=== PATIENT | male | born 1955 | race African-American/Black ===

== ENCOUNTER 2016-11-11 16:01 | Inpatient (IN) | payer MEDICAID ==
[~2016-11-11] VITALS: Ht 188 cm; Wt 103.6 kg
[~2016-11-11 16:01] MED LIST: ASPI81CH37 CHEW; CYCL5TAB PO; GABA400C5 PO; LISI10TA3 PO; METF500T4 PO; NOVORP2 SQ; TRAM50TA PO; VIAG50TA PO
[2016-11-11 16:05] VITALS: BP 117/77; PULSE 96; RESP 20; TEMP 97.7; O2SAT 92
[2016-11-11 16:36] VITALS: O2SAT 98
--- NOTE | 2016-11-11 16:47 | PD ---
HPI Chief Complaint: Neuro Symptoms/ Deficits Time Seen by Provider: 16:39 Travel History International Travel<30 days: No Contact w/Intl Traveler<30days: No Traveled to known affect area: No History of Present Illness HPI 61-year-old male that presents to the ED for evaluation of neurological symptoms. Per patient he had a CVA a couple years ago. Per patient and affect that his left side. Per patient he always has some chronic numbness and weakness to his left side but this morning he woke up with more numbness and more symptoms from it. Per patient he usually has some left facial paralysis but he states that before he was walking and he all of a sudden felt a severe numbness to his left side and he fell to his left side. Per patient he thought he had a stroke at the time but he did not call anybody. Per patient he came here by ambulance because his symptoms seem to be getting worse and she got scared. Whenever I asked the patient when did the fall and worsening symptoms started he tells me before noon. This about 4 or 5 hours ago. Patient states that currently she still has the numbness and has some pain on his left shoulder. Per patient he is concerned. He takes no blood thinners other than aspirin. He does have a history of high blood pressure. He has no allergies to medication. He denies any loss of consciousness. No other injuries reported to me. PFSH Past Medical History Blood Disorders: No Depression: Yes Heart Rhythm Problems: No Cancer: No Cardiovascular Problems: Yes High Cholesterol: Yes Chest Pain: Yes Congestive Heart Failure: No Cerebrovascular Accident: Yes Diabetes: Yes Patient Takes Glucophage: Yes Endocrine: Yes Genitourinary: Yes Hepatitis: No Immune Disorder: No Implanted Vascular Access Dvce: No Kidney Stones: Yes Musculoskeletal: Yes (WEAKNESS IN L LEG ) Neurologic: Yes Psychiatric: Yes Reproductive: No Respiratory: No Renal Failure: Yes (THIS ADMISSION) Thyroid Disease: No Tetanus Vaccination: < 5 Years Influenza Vaccination: Yes Past Surgical History Abdominal Surgery: Yes (APENDIX REMOVED) Appendectomy: Yes Cardiac Surgery: No Ear Surgery: No Endocrine Surgery: No Eye Surgery: No Genitourinary Surgery: No Gynecologic Surgery: No Oral Surgery: Yes (WISDOM TEETH REMOVED) Pacemaker: No Thoracic Surgery: No Other Surgery: Yes (facial surgery) Social History Alcohol Use: Yes (OCCASSIONAL) Tobacco Use: No Substance Use: No Allergies-Medications (Allergen,Severity, Reaction): Coded Allergies: No Known Allergies (Verified , 10/18/16) Reported Meds & Prescriptions Reported Meds & Active Scripts Active Tramadol (Tramadol HCl) 50 Mg Tab 50 Mg PO Q6H PRN Novolin R Inj (Insulin Human Regular) 1,000 Unit/10 Ml Vial 10 Units SQ TIDACHS PRN IMPORTANT TO EAT A MEAL WITHIN 30-60 MINUTES OF DOSING Flexeril (Cyclobenzaprine HCl) 5 Mg Tab 5 Mg PO TID Reported Viagra (Sildenafil Citrate) 50 Mg Tab 50 Mg PO DAILY PRN Metformin ER (Metformin HCl) 500 Mg Fabiana 500 Mg PO QID With evening meal Lisinopril 10 Mg Tab 10 Mg PO DAILY Gabapentin 400 Mg Cap 400 Cap PO BID Aspirin Low Dose (Aspirin) 81 Mg Chew 81 Mg CHEW DAILY Review of Systems Except as stated in HPI: all other systems reviewed are Neg Physical Exam Narrative GENERAL: SKIN: Warm and dry. HEAD: Atraumatic. Normocephalic. EYES: Pupils equal and round 4 mm reactive to light and accommodation. No scleral icterus. No injection or drainage. ENT: No nasal bleeding or discharge. Mucous membranes pink and moist. Tongue is midline. No uvula deviation. Patient does have noted dialysis of the left side of the face especially with smiling test as well as raising eyebrows. Patient cannot close the left eye. EOM appeared to be intact. NECK: Trachea midline. No JVD. CARDIOVASCULAR: Regular rate and rhythm. No murmurs, S3, S4. RESPIRATORY: No accessory muscle use. Clear to auscultation. Breath sounds equal bilaterally. GASTROINTESTINAL: Abdomen soft, non-tender, nondistended. Hepatic and splenic margins not palpable. MUSCULOSKELETAL: Extremities without clubbing, cyanosis, or edema. No obvious deformities. Patient has obvious for out of 5 strength on the left upper and lower extremity compared to the right where he has 5 out of 5 strength. Patient cannot do pronator test. 2+ pulses bilaterally. NEUROLOGICAL: Awake and alert and oriented x 4. Facial nerve paralysis noted otherwise cranial nerves appear intact. Motor grossly within normal limits. Normal speech. decreased sensation on the left extremities. PSYCHIATRIC: Appropriate mood and affect; insight and judgment normal. Data Data Last Documented VS Vital Signs Date Time Temp Pulse Resp B/P Pulse Ox O2 Delivery O2 Flow Rate FiO2 11/11/16 16:36 98 Room Air 11/11/16 16:24 99 20 11/11/16 16:05 97.7 117/77 Orders Electrocardiogram (11/11/16 16:34) Complete Blood Count With Diff (11/11/16 16:34) Basic Metabolic Panel (Bmp) (11/11/16 16:34) Ckmb (Isoenzyme) Profile (11/11/16 16:34) Troponin I (11/11/16 16:34) Prothrombin Time / Inr (Pt) (11/11/16 16:34) Act Partial Throm Time (Ptt) (11/11/16 16:34) Urinalysis - C+S If Indicated (11/11/16 16:34) Magnesium (Mg) (11/11/16 16:34) Thyroid Stimulating Hormone (11/11/16 16:34) Chest, Single Ap (11/11/16 16:34) Ct Brain W/O Iv Contrast(Rout) (11/11/16 16:34) Iv Access Insert/Monitor (11/11/16 16:34) Ecg Monitoring (11/11/16 16:34) Oximetry (11/11/16 16:34) Shoulder, Complete (>2vws) (11/11/16 ) CKMB (11/11/16 16:44) CKMB% (11/11/16 16:44) Aspirin (Aspirin) (11/11/16 18:00) Diet Npo (11/11/16 Dinner) Vital Signs (Adult) HETAL.Q4H (11/11/16 18:12) Labs Laboratory Tests Test 11/11/16 16:44 White Blood Count 6.9 TH/MM3 Red Blood Count 5.54 MIL/MM3 Hemoglobin 18.0 GM/DL Hematocrit 50.8 % Mean Corpuscular Volume 91.8 FL Mean Corpuscular Hemoglobin 32.5 PG Mean Corpuscular Hemoglobin 35.4 % Concent Red Cell Distribution Width 13.2 % Platelet Count 199 TH/MM3 Mean Platelet Volume 9.6 FL Neutrophils (%) (Auto) 63.9 % Lymphocytes (%) (Auto) 25.1 % Monocytes (%) (Auto) 9.0 % Eosinophils (%) (Auto) 1.0 % Basophils (%) (Auto) 1.0 % Neutrophils # (Auto) 4.4 TH/MM3 Lymphocytes # (Auto) 1.7 TH/MM3 Monocytes # (Auto) 0.6 TH/MM3 Eosinophils # (Auto) 0.1 TH/MM3 Basophils # (Auto) 0.1 TH/MM3 CBC Comment DIFF FINAL Differential Comment Prothrombin Time 12.7 SEC Prothromb Time International 1.1 RATIO Ratio Activated Partial 25.3 SEC Thromboplast Time Sodium Level 137 MEQ/L Potassium Level 4.1 MEQ/L Chloride Level 100 MEQ/L Carbon Dioxide Level 30.2 MEQ/L Anion Gap 7 MEQ/L Blood Urea Nitrogen 22 MG/DL Creatinine 1.52 MG/DL Estimat Glomerular Filtration 57 ML/MIN Rate Random Glucose 130 MG/DL Calcium Level 10.0 MG/DL Magnesium Level 2.0 MG/DL Total Creatine Kinase 652 U/L Creatine Kinase MB 5.8 NG/ML Creatine Kinase MB % 0.9 % Troponin I LESS THAN 0.02 NG/ML Thyroid Stimulating Hormone 0.641 uIU/ML 3rd Gen [facility] Medical Decision Making Medical Screen Exam Complete: Yes Emergency Medical Condition: Yes Medical Record Reviewed: Yes Interpretation(s) EKG shows signs of atrial fibrillation but no sign of acute ischemia or arrhythmia read by me and attending. Not in RVR. CBC & BMP Diagram 11/11/16 16:44 troponin negative CKMB elevated LFTs WNL Last Impressions Head CT 11/11/16 1634 Signed Impressions: Service Date/Time: November 17:28 - CONCLUSION: No acute intracranial findings. Chad Bae MD Chest X-Ray 11/11/16 1634 Signed Impressions: Service Date/Time: November 17:19 - CONCLUSION: No acute cardiopulmonary disease identified. Chad Bae MD Shoulder X-Ray 11/11/16 0000 Signed Impressions: Service Date/Time: November 17:14 - CONCLUSION: Left shoulder series within normal limits. Chad Bae MD Differential Diagnosis CVA versus bleed versus fall versus chest pain versus ACS versus trauma versus TIA Narrative Course 61-year-old male that presents to the ED for evaluation of left-sided numbness and weakness that is worse from previous CVA. Patient was properly examined by me and my attending Dr. Garcia. Patient tells me that symptoms started before noon today and he cannot give me a specific time when this started. He already has some chronic deformities to the left side of his body from the previous CVA but per patient the numbness and tingling in the worsening of the symptoms appears to be new today. He did have some symptoms earlier this morning but he disregarded secondary to his chronic condition. My attending agrees that CVA workup she'll be started. Unfortunately patient is beyond the 5 hour window for TPA. Labs and imaging showed no acute disease. EKG showed a- fib. Case was discussed in my attending who recommends admission for CVA workup as well as new onset A. fib. Patient agrees with plan. Case was discussed with Dr. Young who agrees to admission. Procedures EKG Prior to Arrival: No Diagnosis Primary Impression: New onset a-fib Additional Impression: CVA (cerebral vascular accident) Qualified Code: I63.9 - Cerebrovascular accident (CVA), unspecified mechanism Admitting Information Admitting Physician Requests: Admit Ramirez De La Rosa Nov 11, 2016 16:47
[2016-11-11 17:09] LABS: AUTOMATED NEUTROPHIL # 4.4 TH/MM3 (1.8-7.7); BASOPHIL # 0.1 TH/MM3 (0-0.2); EOSINOPHIL # 0.1 TH/MM3 (0-0.4); HEMATOCRIT 50.8 % (39.0-51.0); HEMO FLAGS DIFF FINAL; LYMPH % 25.1 % (9.0-44.0); LYMPHOCYTE # 1.7 TH/MM3 (1.0-4.8); MEAN CELL VOLUME 91.8 FL (80.0-100.0); MEAN CORPUSCULAR HEMOGLOBIN 32.5 PG (27.0-34.0); MEAN CORPUSCULAR HGB CONC 35.4 % (32.0-36.0); NEUT % 63.9 % (16.0-70.0); PLATELET COUNT 199 TH/MM3 (150-450); RED BLOOD COUNT 5.54 MIL/MM3 (4.50-5.90); RED CELL DISTRIBUTION WIDTH 13.2 % (11.6-17.2); WHITE BLOOD COUNT 6.9 TH/MM3 (4.0-11.0)
[2016-11-11 17:16] LABS: APTT (PATIENT) 25.3 SEC (24.3-30.1); INTERNATIONAL NORMALIZED RATIO 1.1 RATIO; PROTHROMBIN TIME - PATIENT 12.7 SEC (9.8-11.6)
[2016-11-11 17:30] LABS: ANION GAP 7 MEQ/L (5-15); BICARBONATE 30.2 MEQ/L (21.0-32.0); BLOOD UREA NITROGEN 22 MG/DL (7-18); CHLORIDE 100 MEQ/L (98-107); GLOMERULAR FILTRATION RATE 57 ML/MIN (>89); POTASSIUM 4.1 MEQ/L (3.5-5.1); SODIUM (NA) 137 MEQ/L (136-145)
[2016-11-11 17:39] LABS: CREATINE KINASE 652 U/L (39-308)
--- NOTE | 2016-11-11 17:49 | RADRPT ---
EXAM DATE/TIME: 11/11/2016 17:14 [facility] COMPARISON: No previous studies available for comparison. INDICATIONS : Left shoulder pain after fall from stroke. MEDICAL HISTORY : None. SURGICAL HISTORY : None. ENCOUNTER: Initial ACUITY: 1 day PAIN SCORE: 10/10 LOCATION: Left shoulder. FINDINGS: 4 views of the left shoulder. Bone alignment within normal limits. No evidence of fracture. Glenohum eral joint within normal limits. Acromioclavicular joint within normal limits. CONCLUSION: Left shoulder series within normal limits. Chad Bae MD on November 11, 2016 at 17:46 Board Certified Radiologist. This report was verified electronically.
--- NOTE | 2016-11-11 17:51 | RADRPT ---
EXAM DATE/TIME: 11/11/2016 17:19 [facility] COMPARISON: CHEST SINGLE AP, September 10, 2015, 12:21. INDICATIONS : Chest pain after fall and stroke. MEDICAL HISTORY : Stroke. SURGICAL HISTORY : None. ENCOUNTER: Initial ACUITY: 1 day PAIN SCORE: 10/10 LOCATION: Bilateral chest FINDINGS: Single AP view of the chest. The lungs are clear. Cardiomediastinal silhouette within normal limits. No evidence of pleural effusion or pneumothorax. CONCLUSION: No acute cardiopulmonary disease identified. Chad Bae MD on November 11, 2016 at 17:49 Board Certified Radiologist. This report was verified electronically.
[2016-11-11 17:52] LABS: CKMB 5.8 NG/ML (0.5-3.6)
--- NOTE | 2016-11-11 17:55 | RADRPT ---
EXAM DATE/TIME: 11/11/2016 17:28 [facility] COMPARISON: CT BRAIN W/O CONTRAST, April 15, 2016, 8:43. INDICATIONS : Left sided facial droop after fall today; cephalgia; evaluate for possible CVA. RADIATION DOSE: 45.88 CTDIvol (mGy) MEDICAL HISTORY : Cerebrovascular disease. Seizures. SURGICAL HISTORY : None. ENCOUNTER: Initial ACUITY: 1 day PAIN SCALE: 4/10 LOCATION: Left cranial TECHNIQUE: Multiple contiguous axial images were obtained of the head. Using automated exposure control and adj ustment of the mA and/or kV according to patient size, radiation dose was kept as low as reasonably a chievable to obtain optimal diagnostic quality images. FINDINGS: CEREBRUM: The ventricles are normal for age. No evidence of midline shift, mass lesion, hemorrhage or acute in farction. No extra-axial fluid collections are seen. POSTERIOR FOSSA: The cerebellum and brainstem are intact. The 4th ventricle is midline. The cerebellopontine angle i s unremarkable. EXTRACRANIAL: Right maxillary sinus mucosal thickening. SKULL: The calvaria is intact. No evidence of skull fracture. CONCLUSION: No acute intracranial findings. Chad Bae MD on November 11, 2016 at 17:52 Board Certified Radiologist. This report was verified electronically.
[2016-11-11] MEDS ORDERED: ASPIRIN 325 MG TAB PO ONE (18:00)
[2016-11-11] MEDS ORDERED: DEXTROSE 50% IN WATER 50 ML VIAL(D50) IV PUSH PRN ×2 (18:15→19:00)
[2016-11-11] MEDS ORDERED: SODIUM CHLOR 0.9% 1000 ML INJ 1,000 ML IV SCH (18:15)
[2016-11-11] MEDS ORDERED: GLUCAGON 1 MG/ML VIAL OTHER PRN (18:15)
[2016-11-11] MEDS ORDERED: ONDANSETRON HCL 4 MG/2 ML VIAL IV PUSH PRN (18:15)
--- NOTE | 2016-11-11 18:18 | PD ---
Physical Exam Date Seen by Provider: Nov 11, 2016 Time Seen by Provider: 17:00 Narrative I, Dr. Villa, have reviewed the advance practice practitioner's documentation and am in agreement, met with the patient face to face, made the diagnosis, and the medical decision making was done by me. *My assessment and Findings: Patient seen and evaluated with PA, please see PA note for further details. Previous history of stroke, here because he is having tingling in his left hand, then over the morning started having left sided weakness and left facial droop. On exam, he is awake, alert, oriented 3. Answering questions appropriately. Cardiac enzymes unremarkable. Pulses are present and equal bilaterally. Pulmonary exam is unremarkable. He has a notable left facial droop and has left arm weakness and left leg weakness on evaluation. EKG shows A. fib with no signs of acute ST-T changes. Laboratory Tests Test 11/11/16 16:44 Hemoglobin 18.0 GM/DL (13.0-17.0) Monocytes (%) (Auto) 9.0 % (0.0-8.0) Prothrombin Time 12.7 SEC (9.8-11.6) Blood Urea Nitrogen 22 MG/DL (7-18) Creatinine 1.52 MG/DL (0.60-1.30) Estimat Glomerular Filtration 57 ML/MIN (>89) Rate Random Glucose 130 MG/DL (74-106) Total Creatine Kinase 652 U/L (39-308) Creatine Kinase MB 5.8 NG/ML (0.5-3.6) Troponin I LESS THAN 0.02 NG/ML (0.02-0.05) Last [address] 11/11/16 1634 Signed Impressions: Service Date/Time: November 17:28 - CONCLUSION: No acute intracranial findings. Chad Bae MD Chest X-Ray 11/11/16 1634 Signed Impressions: Service Date/Time: November 17:19 - CONCLUSION: No acute cardiopulmonary disease identified. Chad Bae MD Shoulder X-Ray 11/11/16 0000 Signed Impressions: Service Date/Time: November 17:14 - CONCLUSION: Left shoulder series within normal limits. Chad Bae MD CT of the brain is negative for any signs of acute intercranial processes. Lab work did not indicate significant metabolic issues. EKG shows a new onset A. fib and there is concern that this may the cause of his current neurological change. At this point, patient was given aspirin and our plan would be to admit him for further treatment. Case is discussed with Dr. Zuleta for admission. Data Data Last Documented VS Vital Signs Date Time Temp Pulse Resp B/P Pulse Ox O2 Delivery O2 Flow Rate FiO2 11/11/16 16:36 98 Room Air 11/11/16 16:24 99 20 11/11/16 16:05 97.7 117/77 Orders Electrocardiogram (11/11/16 16:34) Complete Blood Count With Diff (11/11/16 16:34) Basic Metabolic Panel (Bmp) (11/11/16 16:34) Ckmb (Isoenzyme) Profile (11/11/16 16:34) Troponin I (11/11/16 16:34) Prothrombin Time / Inr (Pt) (11/11/16 16:34) Act Partial Throm Time (Ptt) (11/11/16 16:34) Urinalysis - C+S If Indicated (11/11/16 16:34) Magnesium (Mg) (11/11/16 16:34) Thyroid Stimulating Hormone (11/11/16 16:34) Chest, Single Ap (11/11/16 16:34) Ct Brain W/O Iv Contrast(Rout) (11/11/16 16:34) Iv Access Insert/Monitor (11/11/16 16:34) Ecg Monitoring (11/11/16 16:34) Oximetry (11/11/16 16:34) Shoulder, Complete (>2vws) (11/11/16 ) CKMB (11/11/16 16:44) CKMB% (11/11/16 16:44) Aspirin (Aspirin) (11/11/16 18:00) Diet Npo (11/11/16 Dinner) Vital Signs (Adult) HETAL.Q4H (11/11/16 18:12) Neuro Checks . ORDERED (11/11/16 18:12) Sodium Chlor 0.9% 1000 Ml Inj (Ns 1000 M (11/11/16 18:15) Grinder [employer] Lining / Telemetry HETAL.Q8H (11/11/16 18:12) Ondansetron Inj (Zofran Inj) (11/11/16 18:15) Admit Order (Ed Use Only) (11/11/16 18:13) ^ Blood Glucose Goal (Criteria (11/11/16 18:14) ^ Hypoglycemia 51 - 69 Mg/Dl (11/11/16 18:14) ^ Hypoglycemia 50 Mg/Dl Or < (11/11/16 18:14) ^ Notify Dr: Other (11/11/16 18:14) Dextrose 50% In Nika (Vial) Inj (D50w (Vi (11/11/16 18:15) Glucagon Inj (Glucagon Inj) (11/11/16 18:15) Low Novolog Scale (11/11/16 21:00) Labs Laboratory Tests Test 11/11/16 16:44 White Blood Count 6.9 TH/MM3 Red Blood Count 5.54 MIL/MM3 Hemoglobin 18.0 GM/DL Hematocrit 50.8 % Mean Corpuscular Volume 91.8 FL Mean Corpuscular Hemoglobin 32.5 PG Mean Corpuscular Hemoglobin 35.4 % Concent Red Cell Distribution Width 13.2 % Platelet Count 199 TH/MM3 Mean Platelet Volume 9.6 FL Neutrophils (%) (Auto) 63.9 % Lymphocytes (%) (Auto) 25.1 % Monocytes (%) (Auto) 9.0 % Eosinophils (%) (Auto) 1.0 % Basophils (%) (Auto) 1.0 % Neutrophils # (Auto) 4.4 TH/MM3 Lymphocytes # (Auto) 1.7 TH/MM3 Monocytes # (Auto) 0.6 TH/MM3 Eosinophils # (Auto) 0.1 TH/MM3 Basophils # (Auto) 0.1 TH/MM3 CBC Comment DIFF FINAL Differential Comment Prothrombin Time 12.7 SEC Prothromb Time International 1.1 RATIO Ratio Activated Partial 25.3 SEC Thromboplast Time Sodium Level 137 MEQ/L Potassium Level 4.1 MEQ/L Chloride Level 100 MEQ/L Carbon Dioxide Level 30.2 MEQ/L Anion Gap 7 MEQ/L Blood Urea Nitrogen 22 MG/DL Creatinine 1.52 MG/DL Estimat Glomerular Filtration 57 ML/MIN Rate Random Glucose 130 MG/DL Calcium Level 10.0 MG/DL Magnesium Level 2.0 MG/DL Total Creatine Kinase 652 U/L Creatine Kinase MB 5.8 NG/ML Creatine Kinase MB % 0.9 % Troponin I LESS THAN 0.02 NG/ML Thyroid Stimulating Hormone 0.641 uIU/ML 3rd Gen [facility] Medical Record Reviewed: Yes Supervised Visit with KIRT: Yes Diagnosis Primary Impression: New onset a-fib Additional Impression: CVA (cerebral vascular accident) Qualified Code: I63.9 - Cerebrovascular accident (CVA), unspecified mechanism Admitting Information Admitting Physician Requests: it Yennifer Villa MD Nov 11, 2016 18:18
[2016-11-11] MEDS ORDERED: ENALAPRILAT 1.25 MG/ML VIAL IV PRN (19:00)
[2016-11-11] MEDS ORDERED: SODIUM CHLORIDE 0.9% FLUSH 5 ML FLUSH IVF PRN (19:00)
[2016-11-11] MEDS ORDERED: GLUCAGON 1 MG/ML VIAL IM/SQ PRN (19:00)
--- NOTE | 2016-11-11 19:02 | HHI.HP ---
[facility] Unknown Admission Diagnosis new onset a fib, CVA r/o Diagnoses: (1) CVA (cerebral vascular accident) Diagnosis: Principal (2) New onset a-fib Diagnosis: Principal (3) HTN (hypertension) Diagnosis: Principal (4) Renal insufficiency Diagnosis: Principal (5) Cocaine abuse Diagnosis: Principal (6) DM (diabetes mellitus) Diagnosis: Principal Travel History International Travel<30 Days: No Contact w/Intl Traveler <30 Da: No Traveled to Known Affected Are: No History of Present Illness This is a 61-year-old male with a PMH of HTN, DM, h/o CVA and h/o Cocaine Abuse who came to the ER w/ complaints of left-sided weakness and concern for CVA. States symptoms started earlier this morning, had acute onset of left-sided weakness, states legs gave out and he fell onto left shoulder, now w/ left shoulder pain. Denies LOC or head trauma. Notes associated left facial droop, not present from previous CVA. Arrived outside TPA window. On arrival, BP 117/ 77, HR 96, O2 sat 98% on RA, Afebrile. CBC unremarkable. Creatinine 1.52, previously 1.14 on 04/16/16. CPK 652. Trop negative. EKG w/ A-fib, new onset. CT Head w/ no acute findings. CXR negative. Left Shoulder X-ray normal. On exam, pt w/ persistent left sided facial droop. S/p ASA in ER. Review of Systems Other ROS: 14 point review of systems otherwise negative. Past Family Social History Past Medical History PMH: HTN, DM, h/o CVA and h/o Cocaine Abuse Past Surgical History PAST SURGICAL HISTORY: Appendectomy, [place] Teeth Removal Allergies: Coded Allergies: No Known Allergies (Verified , 10/18/16) Family History PAST FAMILY HISTORY: Reviewed, positive for DM. Social History PAST SOCIAL HISTORY: Occasional alcohol. Negative for tobacco. H/o Cocaine. Physical Exam Vital Signs Vital Signs Date Time Temp Pulse Resp B/P Pulse Ox O2 Delivery O2 Flow Rate FiO2 11/11/16 16:36 98 Room Air 11/11/16 16:24 99 20 98 Room Air 11/11/16 16:05 97.7 96 20 117/77 92 Room Air Physical Exam PE: GENERAL: Middle-aged black male in no acute distress. HEENT: PERRLA, EOMI. No scleral icterus or conjunctival pallor. +left facial droop. CARDIOVASCULAR: Regular rate and rhythm. No obvious murmurs to auscultation. No chest tenderness to palpation. RESPIRATORY: No obvious rhonchi or wheezing. Clear to auscultation. Breath sounds equal bilaterally. GASTROINTESTINAL: Abdomen soft, non-tender, nondistended. BS normal. MUSCULOSKELETAL: Extremities without clubbing, cyanosis, or edema. No obvious deformities. NEUROLOGICAL: Awake, alert and oriented x4. No focal neurologic deficits. Strength 4/5 LUE/LLE, 5/5 RUE/RLE. Moving both upper and lower extremities spontaneously. Laboratory Laboratory Tests Test 11/11/16 16:44 White Blood Count 6.9 Red Blood Count 5.54 Hemoglobin 18.0 Hematocrit 50.8 Mean Corpuscular Volume 91.8 Mean Corpuscular Hemoglobin 32.5 Mean Corpuscular Hemoglobin 35.4 Concent Red Cell Distribution Width 13.2 Platelet Count 199 Mean Platelet Volume 9.6 Neutrophils (%) (Auto) 63.9 Lymphocytes (%) (Auto) 25.1 Monocytes (%) (Auto) 9.0 Eosinophils (%) (Auto) 1.0 Basophils (%) (Auto) 1.0 Neutrophils # (Auto) 4.4 Lymphocytes # (Auto) 1.7 Monocytes # (Auto) 0.6 Eosinophils # (Auto) 0.1 Basophils # (Auto) 0.1 CBC Comment DIFF FINAL Differential Comment Prothrombin Time 12.7 Prothromb Time International 1.1 Ratio Activated Partial 25.3 Thromboplast Time Sodium Level 137 Potassium Level 4.1 Chloride Level 100 Carbon Dioxide Level 30.2 Anion Gap 7 Blood Urea Nitrogen 22 Creatinine 1.52 Estimat Glomerular Filtration 57 Rate Random Glucose 130 Calcium Level 10.0 Magnesium Level 2.0 Total Creatine Kinase 652 Creatine Kinase MB 5.8 Creatine Kinase MB % 0.9 Troponin I LESS THAN 0.02 Thyroid Stimulating Hormone 0.641 3rd Gen Result Diagram: 11/11/16 1644 11/11/16 1644 Assessment and Plan Problem List: (1) CVA (cerebral vascular accident) ICD Code: I63.9 Status: Acute (2) New onset a-fib ICD Code: I48.91 Status: Acute (3) Renal insufficiency ICD Code: N28.9 Status: Acute (4) HTN (hypertension) ICD Code: I10 Status: Acute (5) Cocaine abuse ICD Code: F14.10 Status: Chronic (6) DM (diabetes mellitus) ICD Code: E11.9 Status: Acute Assessment and Plan A/P: 1. CVA: Acute left-sided weakness and left facial droop w/ persistent symptoms , presented outside TPA window. CT Head w/ no acute findings, images reviewed by me. S/p ASA in ER, takes ASA at home. Continue w/ ASA [place], check MRI/MRA and Echo. PT/OT/Speech. NPO, IVF. Consult Neurology for further evaluation. H/o Cocaine Abuse, check Urine Drug Screen. 2. HTN: Permissive HTN. Vasotec prn for Systolic >220. Will monitor. 3. Renal Insufficiency: Creatinine 1.52, previously 1.14 on 04/16/16. Check U/a , pending Urine Drug Screen. CPK mildly elevated, likely from fall vs cocaine. IVF, repeat labs in am. 4. Cocaine Abuse: h/o Cocaine abuse, denies recent ingestion. Check Urine Drug Screen, hold off on B-alejandro for now. 5. A-fib: New Onset. Rate controlled. Check Echo. Continue ASA, hold B- alejandro in light of possible Cocaine. Consult Cardiology for further recommendations. Trop negative, check serial troponin/CPK. 6. DM: Sliding scale w/ Accu-Cheks. Hold Metformin in light of renal insufficiency and NPO status. Check Hgb A1c 7. DVT Prophylaxis: SCD/Teds. 8. Social work for d/c planning as needed. 9. Case discussed w/ ER physician at length. Physician Certification 2 Midnight Certification Type: Admission for Inpatient Services Order for Inpatient Services The services are ordered in accordance with Medicare regulations or non- Medicare payer requirements, as applicable. In the case of services not specified as inpatient-only, they are appropriately provided as inpatient services in accordance with the 2-midnight benchmark. Estimated LOS (days): 2 days is the estimated time the patient will need to remain in the hospital, assuming treatment plan goals are met and no additional complications. Post-Hospital Plan: Not yet determined Problem Qualifiers (1) CVA (cerebral vascular accident): Qualified Code: I63.9 - Cerebrovascular accident (CVA), unspecified mechanism Malathi Medrano MD Nov 11, 2016 19:02
[2016-11-11 19:06] VITALS: O2SAT 98
[2016-11-11 19:10] LABS: BACTERIA, URINE RARE /hpf; BLOOD, URINE NEG (NEG); COMMENT (UR) CULT NOT INDICATED; CULTURE IF INDICATED CULT NOT INDICATED; GLUCOSE,URINE NEG (NEG); GRANULAR CAST, URINE 4 /lpf; HYALINE CAST, URINE 10 /lpf (RARE); KETONE, URINE TRACE mg/dL (NEG); MUCUS URINE FEW /lpf (OCC); NITRITE,URINE NEG (NEG); PH, URINE 5.5 (5.0-8.5); SQUAMOUS EPITHELIAL CELL URINE 1 /hpf (0-5); URINE COLOR YELLOW (YELLW/STRAW)
[2016-11-11 20:02] LABS: AMPHETAMINE, URINE NEG (NEG); BARBITURATES, URINE NEG (NEG); COCAINE, URINE POS (NEG)
[2016-11-11] MEDS: SODIUM CHLOR 0.9% 1000 ML INJ 1,000 ML IV SCH (20:05)
[2016-11-11] MEDS: SODIUM CHLORIDE 0.9% FLUSH 5 ML FLUSH IVF SCH (21:00)
[2016-11-11] MEDS: INSULIN ASPART SUPPLEMENTAL SCALE SQ SCH (21:00)
[2016-11-11] MEDS ORDERED: INSULIN ASPART SUPPLEMENTAL SCALE SQ SCH (21:00)
[2016-11-11 22:41] VITALS: BP 133/89; PULSE 89; RESP 18; O2SAT 99
[2016-11-11 23:58] VITALS: PULSE 58
[2016-11-12] VITALS (9 sets, daily range): BP systolic 121–135; BP diastolic 75–88; PULSE 62–86; RESP 18–32; TEMP 97.4–98.3; O2SAT 94–96
[2016-11-12] MEDS: INSULIN ASPART SUPPLEMENTAL SCALE SQ SCH ×4 (05:43→20:00)
[2016-11-12 05:54] LABS: CREATINE KINASE 493 U/L (39-308); HDL CHOLESTEROL 40.1 MG/DL (40.0-60.0); LDL CHOLESTEROL 114 MG/DL (0-99)
[2016-11-12 06:07] LABS: CKMB 4.7 NG/ML (0.5-3.6)
[2016-11-12] MEDS ORDERED: ASPIRIN 300 MG SUPP PR SCH (09:00)
[2016-11-12] MEDS: SODIUM CHLORIDE 0.9% FLUSH 5 ML FLUSH IVF SCH ×2 (09:00→19:58)
--- NOTE | 2016-11-12 09:08 | PD.CARD.PN ---
Subjective Subjective Remarks Pt is very upset that he is NPO, no meds and has not eaten for over a day. He declines any further evaluation, testing "anything until I am fed" Objective Vital Signs / I&O Vital Signs Date Time Temp Pulse Resp B/P Pulse Ox O2 Delivery O2 Flow Rate FiO2 11/12/16 04:00 97.9 86 20 135/88 94 11/12/16 00:00 Room Air 11/12/16 00:00 97.8 72 20 131/79 95 11/11/16 23:58 58 11/11/16 22:41 89 18 133/89 99 Room Air 11/11/16 19:06 98 11/11/16 16:36 98 Room Air 11/11/16 16:24 99 20 98 Room Air 11/11/16 16:05 97.7 96 20 117/77 92 Room Air I/O 11/11/16 11/11/16 11/11/16 11/12/16 11/12/16 11/12/16 07:00 15:00 23:00 07:00 15:00 23:00 Intake Total 0 ml Balance 0 ml Intake Oral 0 ml # Voids 1 # Bowel Movements 0 Laboratory Laboratory Tests Test 11/11/16 11/11/16 11/11/16 11/12/16 16:44 18:55 19:25 05:08 White Blood Count 6.9 TH/MM3 Red Blood Count 5.54 MIL/MM3 Hemoglobin 18.0 GM/DL Hematocrit 50.8 % Mean Corpuscular Volume 91.8 FL Mean Corpuscular Hemoglobin 32.5 PG Mean Corpuscular Hemoglobin 35.4 % Concent Red Cell Distribution Width 13.2 % Platelet Count 199 TH/MM3 Mean Platelet Volume 9.6 FL Neutrophils (%) (Auto) 63.9 % Lymphocytes (%) (Auto) 25.1 % Monocytes (%) (Auto) 9.0 % Eosinophils (%) (Auto) 1.0 % Basophils (%) (Auto) 1.0 % Neutrophils # (Auto) 4.4 TH/MM3 Lymphocytes # (Auto) 1.7 TH/MM3 Monocytes # (Auto) 0.6 TH/MM3 Eosinophils # (Auto) 0.1 TH/MM3 Basophils # (Auto) 0.1 TH/MM3 CBC Comment DIFF FINAL Differential Comment Prothrombin Time 12.7 SEC Prothromb Time International 1.1 RATIO Ratio Activated Partial 25.3 SEC Thromboplast Time Sodium Level 137 MEQ/L Potassium Level 4.1 MEQ/L Chloride Level 100 MEQ/L Carbon Dioxide Level 30.2 MEQ/L Anion Gap 7 MEQ/L Blood Urea Nitrogen 22 MG/DL Creatinine 1.52 MG/DL Estimat Glomerular Filtration 57 ML/MIN Rate Random Glucose 130 MG/DL Calcium Level 10.0 MG/DL Magnesium Level 2.0 MG/DL Total Creatine Kinase 652 U/L 493 U/L Creatine Kinase MB 5.8 NG/ML 4.7 NG/ML Creatine Kinase MB % 0.9 % 1.0 % Troponin I LESS THAN 0.02 LESS THAN 0.02 NG/ML NG/ML Thyroid Stimulating Hormone 0.641 uIU/ML 3rd Gen Urine Color YELLOW Urine Turbidity CLEAR Urine pH 5.5 Urine Specific [place] 1.007 Urine Protein 30 mg/dL Urine Glucose (UA) NEG mg/dL Urine Ketones TRACE mg/dL Urine Occult Blood NEG Urine Nitrite NEG Urine Bilirubin NEG Urine Urobilinogen LESS THAN 2.0 MG/DL Urine Leukocyte Esterase SMALL Urine RBC LESS THAN 1 /hpf Urine WBC 4 /hpf Urine Squamous Epithelial 1 /hpf Cells Urine Bacteria RARE /hpf Urine Hyaline Casts 10 /lpf Urine Granular Casts 4 /lpf Urine Mucus FEW /lpf Microscopic Urinalysis Comment CULT NOT INDICATED Urine Opiates Screen NEG Urine Barbiturates Screen NEG Urine Amphetamines Screen NEG Urine Benzodiazepines Screen NEG Urine Cocaine Screen POS Urine Cannabinoids Screen NEG Triglycerides Level 116 MG/DL Cholesterol Level 177 MG/DL LDL Cholesterol 114 MG/DL HDL Cholesterol 40.1 MG/DL Cholesterol/HDL Ratio 4.41 RATIO Assessment and Plan Assessment and Plan AF- I did not see any documentation on the chart Pt declines to be seen Please reconsult when he is agreeable and AF documentation is found Sherin Nails MD Nov 12, 2016 09:08
--- NOTE | 2016-11-12 11:04 | HHI.PR ---
Subjective Remarks Follow-up for CVA Left-sided weakness about the same, no facial numbness. Denies any headache, nausea or vomiting. Objective Vitals Vital Signs Date Time Temp Pulse Resp B/P Pulse Ox O2 Delivery O2 Flow Rate FiO2 11/12/16 08:00 98.3 80 24 132/82 96 11/12/16 04:00 97.9 86 20 135/88 94 11/12/16 00:00 Room Air 11/12/16 00:00 97.8 72 20 131/79 95 11/11/16 23:58 58 11/11/16 22:41 89 18 133/89 99 Room Air 11/11/16 19:06 98 11/11/16 16:36 98 Room Air 11/11/16 16:24 99 20 98 Room Air 11/11/16 16:05 97.7 96 20 117/77 92 Room Air I/O 11/11/16 11/11/16 11/11/16 11/12/16 11/12/16 11/12/16 07:00 15:00 23:00 07:00 15:00 23:00 Intake Total 0 ml Balance 0 ml Intake Oral 0 ml # Voids 1 # Bowel Movements 0 Result Diagram: 11/11/16 1644 11/11/16 1644 Imaging Last Impressions Head CT 11/11/16 1634 Signed Impressions: Service Date/Time: November 17:28 - CONCLUSION: No acute intracranial findings. Chad Bae MD Chest X-Ray 11/11/16 1634 Signed Impressions: Service Date/Time: November 17:19 - CONCLUSION: No acute cardiopulmonary disease identified. Chad Bae MD Shoulder X-Ray 11/11/16 0000 Signed Impressions: Service Date/Time: November 17:14 - CONCLUSION: Left shoulder series within normal limits. Chad Bae MD Objective Remarks GENERAL: Middle-aged black male in no acute distress. HEENT: PERRLA, EOMI. No scleral icterus or conjunctival pallor. +left facial droop. CARDIOVASCULAR: Regular rate and rhythm. No obvious murmurs to auscultation. No chest tenderness to palpation. RESPIRATORY: No obvious rhonchi or wheezing. Clear to auscultation. Breath sounds equal bilaterally. GASTROINTESTINAL: Abdomen soft, non-tender, nondistended. BS normal. MUSCULOSKELETAL: Extremities without clubbing, cyanosis, or edema. No obvious deformities. NEUROLOGICAL: Awake, alert and oriented x4.left nasolabial fold narrowing, no sensory deficits both upper and lower extremities and face. Strength 4/5 LUE/ LLE, 5/5 RUE/RLE. A/P Problem List: (1) CVA (cerebral vascular accident) ICD Code: I63.9 Status: Acute (2) New onset a-fib ICD Code: I48.91 Status: Acute (3) Renal insufficiency ICD Code: N28.9 Status: Acute (4) HTN (hypertension) ICD Code: I10 Status: Acute (5) Cocaine abuse ICD Code: F14.10 Status: Chronic (6) DM (diabetes mellitus) ICD Code: E11.9 Status: Acute Assessment and Plan This is a 61-year-old male with history of hypertension and cocaine abuse who presented with left-sided weakness CVA: Acute left-sided weakness and left facial droop w/ persistent symptoms, presented outside [facility] window. CT Head w/ no acute findings, images reviewed by me. S/p ASA in ER, takes ASA at home. Continue with aspirin, check MRI/MRA and Echo. PT/OT/Speech. Consult Neurology for further evaluation. H/o Cocaine Abuse, speech evaluation. Likely secondary to atrial fibrillation New onset atrial fibrillation-cardiology was consulted but patient refused to be seen. Currently in sinus rhythm. Follow-up echocardiogram, continue aspirin. Troponin negative. HTN: Permissive HTN. Vasotec prn for Systolic >220. Will monitor. Renal Insufficiency: Creatinine 1.52, previously 1.14 on 04/16/16. UA showed proteinuria. CPK mildly elevated, likely from fall vs cocaine. IVF, repeat labs in am. Cocaine Abuse: h/o Cocaine abuse, denies recent ingestion. Positive cocaine on tox screen. 8 blockers on hold DM: Sliding scale w/ Accu-Cheks. Hold Metformin in light of renal insufficiency and NPO status. Hgb A1c 7.3. DVT Prophylaxis: SCD/Teds. Problem Qualifiers (1) CVA (cerebral vascular accident): Qualified Code: I63.9 - Cerebrovascular accident (CVA), unspecified mechanism Elvis Baird MD Nov 12, 2016 11:04
[2016-11-12] MEDS: SODIUM CHLOR 0.9% 1000 ML INJ 1,000 ML IV SCH ×2 (11:08→19:58)
--- NOTE | 2016-11-12 13:07 | EC ---
Study Study Date:11/12/2016 STUDY CONCLUSIONS SUMMARY - Left ventricle: The cavity size was normal. Wall thickness was normal. Systolic function was normal. The estimated ejection fraction was in the range of 55% to 60%. Wall motion was normal; there were no regional wall motion abnormalities. - Aortic valve: Valve area: 2.19cm^2 (Vmax). - Mitral valve: Mild regurgitation. Impressions: No cardiac source of emboli was indentified. If LV function is below 40, please consider prescribing an ACEI or ARB or document rationale for non-use. PROCEDURE DATA STUDY STATUS: Elective. Procedure: Transthoracic echocardiography. Image quality was good. Scanning was performed from the parasternal, apical, and subcostal acoustic windows. Study completion: The patient tolerated the procedure well. Transthoracic echocardiography. M-mode, complete 2D, complete spectral Doppler, and color Doppler. Height: Height: 74in. Weight: Weight: 209.6lb. Body mass index: BMI: 27kg/m^2. Body surface area: BSA: 2.22m^2. Patient status: Inpatient. CARDIAC ANATOMY LEFT VENTRICLE: The cavity size was normal. Wall thickness was normal. Systolic function was normal. The estimated ejection fraction was in the range of 55% to 60%. Wall motion was normal; there were no regional wall motion abnormalities. AORTIC VALVE: Trileaflet; normal thickness leaflets. Doppler: Transvalvular velocity was within the normal range. There was no stenosis. No regurgitation. Valve area: 2.19cm^2 (Vmax). Indexed valve area: 0.99cm^2/m^2 (Vmax). AORTA: Aortic root: The aortic root was normal in size. MITRAL VALVE: Structurally normal valve. Doppler: Transvalvular velocity was within the normal range. There was no evidence for stenosis. Mild regurgitation. LEFT ATRIUM: The atrium was normal in size. RIGHT VENTRICLE: The cavity size was normal. Wall thickness was normal. PULMONIC VALVE: Doppler: Transvalvular velocity was within the normal range. There was no evidence for stenosis. No regurgitation. TRICUSPID VALVE: Structurally normal valve. Doppler: Transvalvular velocity was within the normal range. No regurgitation. PULMONARY ARTERY: The main pulmonary artery was normal-sized. Systolic pressure was within the normal range. RIGHT ATRIUM: The atrium was normal in size. PERICARDIUM: There was no pericardial effusion. SYSTEMIC VEINS: Inferior vena cava: The vessel was normal in size. Patient weight: 209.6lb _Ejection fraction:_ 65-75% _Fractional shortening:_ 32% up to 5Kg 5-11.5Kg 11.6-22.9Kg 23-45Kg 45-57Kg Aortic Root 7-13 <17 13-22 17-27 17-27 LA diam 6-13 <23 24-38 33-47 37-40 RVID 10-17 7-15 7-15 7-18 8-17 LVIDd 12-22 <32 24-38 33-47 37-40 LVPW 2-4 3-6 5-7 6-8 7-8 IVS 2-4 3-6 5-7 6-8 7-8 BASIC MEASUREMENTS ADULT NORMAL Left ventricle LV internal dimension, ED, chordal *56.6 mm 43-52 level, PLAX LV internal dimension, ES, chordal *42.6 mm 23-38 level, PLAX Fractional shortening, chordal level, *25 % >29 PLAX LV posterior wall thickness, ED 7.43 mm IVS/LVPW ratio, ED 1.14 <1.3 Ventricular septum Septal thickness, ED 8.5 mm Aortic valve Leaflet separation 21 mm 15-26 BASIC MEASUREMENTS ADULT NORMAL Aortic valve Leaflet separation 21 mm 15-26 Aorta Root diameter, ED 29 mm 20-37 Left atrium Anterior-posterior dimension, ES 32 mm 19-40 Anterior-posterior dimension index, ES 1.44 cm/m^2 <2.2 LA/aortic root ratio 1.1 DOPPLER MEASUREMENTS ADULT NORMAL Main pulmonary artery Pressure, S 19 mm Hg =30 Aortic valve Peak velocity, S 138 cm/s Valve area, Vmax 2.19 cm^2 Valve area index, Vmax 0.99 cm^2/m^2 Mitral valve Peak E-wave velocity 55.3 cm/s Peak A-wave velocity 69.6 cm/s Deceleration time 225 ms 150-230 Peak E/A ratio 0.8 Maximal regurgitant velocity 276 cm/s Tricuspid valve Regurgitant peak velocity 190 cm/s Peak RV-RA gradient, S 14 mm Hg Maximal regurgitant velocity 190 cm/s Systemic veins Estimated CVP 10 mm Hg Right ventricle RV pressure, S 24 mm Hg <30 Pulmonic valve Peak velocity, S 117 cm/s LEGEND: Mean values are shown as u=mean value. Asterisk (*) parra values outside specified normal range. Prepared and signed by Sherin Nails [id number]
[2016-11-12 13:47] LABS: HEMOGLOBIN A1a 0.9 %; HEMOGLOBIN A1b 1.9 %; HEMOGLOBIN Ao 83.2 %; HEMOGLOBIN LA1C 2.1 %; HEMOGLOBIN P3 3.9 %
--- NOTE | 2016-11-12 13:48 | EKG ---
Date Performed: 11/11/2016 Time Performed: 18:18:04 PTAGE: 61 years EKG: Sinus rhythm WITH SINUS ARRHYTHMIA MODERATE VOLTAGE CRITERIA FOR LVH, CONSIDER NORMAL VARIANT BORDERLINE ECG PREVIOUS TRACING : 04/15/2016 04.54 Since previous tracing, no significant change noted DOCTOR: Cindy Reis Interpretating Date/Time 11/12/2016 13:42:33
[2016-11-12 14:54] LABS: CREATINE KINASE 383 U/L (39-308)
[2016-11-12 15:06] LABS: CKMB 2.8 NG/ML (0.5-3.6)
--- NOTE | 2016-11-12 16:15 | MB ---
cc: BRIGIDO OKEEFE MD DATE OF CONSULTATION: 11/12/2016. REASON FOR CONSULTATION: Stroke. HISTORY OF PRESENT ILLNESS: This is a 61-year-old -[place] male with past medical history significant for hypertension, diabetes mellitus, history of stroke with residual left-sided weakness, left facial weakness and mild slurring, history of cocaine abuse who presented to the emergency room at [facility] with complaint of worsening left-sided weakness and concern for another stroke. The patient states that the symptoms started acutely with worsening of left-sided weakness and his legs gave out on him and he fell onto his left shoulder. He denies headache, loss of consciousness, head trauma, double vision, and blurred vision. He states that the left facial droop is of recent onset and is not from the previous stroke. He arrived outside the tPA window. On arrival, the vital signs were within normal and his lab work was unremarkable.EKG revealed a new onset atrial fibrillation. Head CT scan was without any acute findings. He received aspirin in the emergency room. Urine tested positive for cocaine. REVIEW OF SYSTEMS: A twelve-point review of systems was negative except as stated in the history of present illness. PAST MEDICAL HISTORY: 1. Hypertension. 2. Diabetes. 3. History of stroke with residual left-sided weakness. 4. History of cocaine abuse. PAST SURGICAL HISTORY: 1. Appendectomy. 2. Removal of wisdom teeth. ALLERGIES: NO KNOWN DRUG ALLERGIES. FAMILY HISTORY: Positive for diabetes mellitus. SOCIAL HISTORY: Occasional alcohol. Negative for tobacco. Positive for cocaine. PHYSICAL EXAMINATION: GENERAL: The patient is awake, alert, mild distress due to not being fed and he complains and refuses to give history. HEAD, EYES, EARS, NOSE, THROAT: Normocephalic and atraumatic. Intact hearing. Intact vision. CARDIOVASCULAR: Regular rate and rhythm. No murmurs. RESPIRATORY: Clear to auscultation. No wheezes. MUSCULOSKELETAL: Extremities without clubbing, cyanosis or edema. Moves all extremities. NEUROLOGICAL EXAMINATION: Awake, alert and oriented to time, person and place. CRANIAL NERVES: A left facial palsy of lower motor neuron type. Mild subtle dysarthria. Other cranial nerves are intact. MOTOR: Muscle strength - left upper extremity has a lot of give-way and lack of cooperation as the patient was not cooperative during the exam but I felt that the left upper extremity shoulder abduction and wrist extension are 5-/5. The rest of the muscle groups 5/5. The left lower extremity hip flexion is 5-/5 with a lot of give-way and lack of cooperation. Left foot dorsiflexion is 4+/5. Tone was on the high side, spastic in nature on the left upper extremity and left lower extremity. Right upper and lower extremities are 5/5. SENSORY: Sensation is diminished on the entire left side of the upper and lower extremities.No sensory extinction. REFLEXES: Reflexes 2+ bilateral symmetrical. Plantars are bilateral downgoing. LAB TESTS: White blood cells were 6.9, hemoglobin 18, MCV 91.8, platelet count 199,000. INR 1.1.Sodium 137, potassium 4.1, BUN 22, creatinine 1.52, calcium 10, magnesium 2. Total creatine kinase 652.Troponin less than 0.02. DIAGNOSTIC IMAGING: - Head CT scan without contrast revealed no acute intracranial findings. DIAGNOSTIC IMPRESSION: 1. History of stroke with left-sided weakness. 2. Worsening of the left-sided weakness with questionable new onset left facial droop of lower motor neuron lesion; possible etiology is ischemic stroke secondary to cocaine abuse. PLAN: 1. Neuro checks q. 4 hourly. 2. Allow permissive hypertension and treat for blood pressure greater than 220/ 120 for the next 24 hours. 3. Avoid beta-blockers given the positive cocaine. 4. MRI of the brain. 5. MRA of the brain. 6. Carotid echo. 7. Telemetry. 8. Aspirin 81 milligrams. 9. DVT prophylaxis, SCDs. 10. GI prophylaxis. 11. Consult cardiology. Recommendations appreciated for new onset atrial fibrillation Thank you for the opportunity to participate in the care of your patient. MD KERI Gayle/MALINA /3:26 PM /3:53 PM SHARLA
[2016-11-12] MEDS: ASPIRIN 325 MG TAB TUBE SCH (16:49)
[2016-11-12] MEDS: PRAVASTATIN SOD 40 MG TAB PO SCH (19:58)
[2016-11-13] VITALS (8 sets, daily range): BP systolic 119–151; BP diastolic 68–86; PULSE 62–78; RESP 18; TEMP 97.2–98.1; O2SAT 95–97
[2016-11-13] MEDS: INSULIN ASPART SUPPLEMENTAL SCALE SQ SCH ×4 (06:13→20:30)
[2016-11-13] MEDS: SODIUM CHLOR 0.9% 1000 ML INJ 1,000 ML IV SCH ×2 (07:50→20:31)
[2016-11-13] MEDS: SODIUM CHLORIDE 0.9% FLUSH 5 ML FLUSH IVF SCH ×2 (07:51→20:31)
[2016-11-13] MEDS: ASPIRIN 325 MG TAB TUBE SCH (07:57)
[2016-11-13 08:08] LABS: BICARBONATE 31.1 MEQ/L (21.0-32.0); POTASSIUM 3.9 MEQ/L (3.5-5.1)
--- NOTE | 2016-11-13 11:22 | HHI.PR ---
Subjective Remarks Follow-up for CVA Patient still with left-sided weakness improved ability from yesterday. No nausea or vomiting. No headache. Objective Vitals Vital Signs Date Time Temp Pulse Resp B/P Pulse Ox O2 Delivery O2 Flow Rate FiO2 11/13/16 08:44 Room Air 11/13/16 08:05 97.8 66 18 119/81 95 11/13/16 04:00 97.8 62 18 120/74 95 11/13/16 00:00 97.2 63 18 142/86 95 11/12/16 20:14 72 11/12/16 20:10 Room Air 11/12/16 20:00 97.4 78 18 121/75 96 11/12/16 19:42 78 11/12/16 16:00 97.9 72 32 129/76 94 11/12/16 12:00 97.4 62 24 132/78 94 I/O 11/12/16 11/12/16 11/12/16 11/13/16 11/13/16 11/13/16 07:00 15:00 23:00 07:00 15:00 23:00 Intake Total 0 ml 480 ml 806 ml 480 ml Output Total 500 ml 400 ml 900 ml Balance 0 ml -20 ml 406 ml -420 ml Intake Oral 0 ml 480 ml 240 ml 480 ml IV Total 566 ml Output Urine Total 500 ml 400 ml 900 ml # Voids 1 # Bowel Movements 0 1 0 Result Diagram: 11/11/16 1644 11/13/16 0656 Imaging Last Impressions Head CT 11/11/16 1634 Signed Impressions: Service Date/Time: November 17:28 - CONCLUSION: No acute intracranial findings. Chad Bae MD Chest X-Ray 11/11/16 1634 Signed Impressions: Service Date/Time: November 17:19 - CONCLUSION: No acute cardiopulmonary disease identified. Chad Bae MD Shoulder X-Ray 11/11/16 0000 Signed Impressions: Service Date/Time: November 17:14 - CONCLUSION: Left shoulder series within normal limits. Chad Bae MD Objective Remarks GENERAL: Middle-aged black male in no acute distress. HEENT: PERRLA, EOMI. No scleral icterus or conjunctival pallor. +left facial droop. CARDIOVASCULAR: Regular rate and rhythm. No obvious murmurs to auscultation. No chest tenderness to palpation. RESPIRATORY: No obvious rhonchi or wheezing. Clear to auscultation. Breath sounds equal bilaterally. GASTROINTESTINAL: Abdomen soft, non-tender, nondistended. BS normal. MUSCULOSKELETAL: Extremities without clubbing, cyanosis, or edema. No obvious deformities. NEUROLOGICAL: Awake, alert and oriented x4.left nasolabial fold narrowing, no sensory deficits both upper and lower extremities and face. Strength 4/5 LUE/ LLE, 5/5 RUE/RLE. A/P Problem List: (1) CVA (cerebral vascular accident) ICD Code: I63.9 Status: Acute (2) New onset a-fib ICD Code: I48.91 Status: Acute (3) Renal insufficiency ICD Code: N28.9 Status: Acute (4) HTN (hypertension) ICD Code: I10 Status: Acute (5) Cocaine abuse ICD Code: F14.10 Status: Chronic (6) DM (diabetes mellitus) ICD Code: E11.9 Status: Acute Assessment and Plan This is a 61-year-old male with history of hypertension and cocaine abuse who presented with left-sided weakness CVA: Acute left-sided weakness and left facial droop w/ persistent symptoms, presented outside [facility] window. CT Head w/ no acute findings, images reviewed by me. S/p ASA in ER, takes ASA at home. Continue with aspirin, follow-up MRI/ MRA and Echo. PT/OT/Speech. Neurology following, likely a small lacunar infarct. H/o Cocaine Abuse, speech evaluation. Likely secondary to atrial fibrillation, will defer anticoagulation to cardiology and neurology. Continue statins. New onset atrial fibrillation-cardiology was consulted but patient refused to be seen. Currently in sinus rhythm. Echocardiogram showed a preserved ejection fraction, no thrombus. Continue aspirin. Troponin negative. Defer anticoagulation to cardiology. HTN: Permissive HTN. Vasotec prn for Systolic >220. Will monitor. Renal Insufficiency: Creatinine 1.52, previously 1.14 on 04/16/16. UA showed proteinuria. CPK mildly elevated, likely from fall vs cocaine. Continue IVF , resolved. Creatinine is now normal. Cocaine Abuse: h/o Cocaine abuse, denies recent ingestion. Positive cocaine on tox screen. Beta blockers on hold DM: Sliding scale w/ Accu-Cheks. Hold Metformin in light of renal insufficiency and NPO status. Hgb A1c 7.3. Will need a higher dose of metformin on discharge. DVT Prophylaxis: SCD/Teds. Problem Qualifiers (1) CVA (cerebral vascular accident): Qualified Code: I63.9 - Cerebrovascular accident (CVA), unspecified mechanism Elvis Baird MD Nov 13, 2016 11:22
[2016-11-13] MEDS ORDERED: ACETAMINOPHEN 325 MG TAB PO PRN ×2 (17:15)
[2016-11-13] MEDS ORDERED: ACETAMINOPHEN/HYDROcodone 325 MG/5 MG TAB PO PRN (17:15)
[2016-11-13] MEDS: ACETAMINOPHEN/HYDROcodone 325 MG/5 MG TAB PO PRN (17:24)
[2016-11-13] MEDS: PRAVASTATIN SOD 40 MG TAB PO SCH (20:29)
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
[2016-11-14] VITALS (8 sets, daily range): BP systolic 138–156; BP diastolic 80–99; PULSE 60–89; RESP 16–28; TEMP 97.6–98.1; O2SAT 95–98
[2016-11-14] MEDS: ACETAMINOPHEN/HYDROcodone 325 MG/5 MG TAB PO PRN ×2 (04:52→16:22)
[2016-11-14] MEDS: INSULIN ASPART SUPPLEMENTAL SCALE SQ SCH ×4 (06:17→20:38)
[2016-11-14] MEDS: ASPIRIN 325 MG TAB TUBE SCH (07:46)
[2016-11-14] MEDS: SODIUM CHLORIDE 0.9% FLUSH 5 ML FLUSH IVF SCH ×2 (09:00→20:40)
[2016-11-14] MEDS ORDERED: LISI-515 PO (09:48)
[2016-11-14] MEDS ORDERED: PRAV40TA PO (09:48)
[2016-11-14] MEDS ORDERED: ASPI325T PO (09:48)
[2016-11-14] MEDS ORDERED: TRAM50TA PO (09:48)
--- NOTE | 2016-11-14 11:11 | RADRPT ---
EXAM DATE/TIME: 11/14/2016 10:12 [facility] COMPARISON: No previous studies available for comparison. INDICATIONS : Cerebrovascular accident. MEDICAL HISTORY : Hypercholesterolemia. Hypertension. Renal calculi. Migraines. Blurry vision. Cerebrovascular accident . Hemiplegia on left. Hyperlipidemia. Renal failure. Arthritis. Diabetes. Depression. SURGICAL HISTORY : Appendectomy. Right foot fracture repair. Facial surgery. ENCOUNTER: Initial ACUITY: 1 day PAIN SCORE: 0/10 LOCATION: Bilateral neck PEAK SYSTOLIC VELOCITIES (cm/sec): ICA/CCA RATIO: Right: 0.9 Left: 1.3 ICA: Right: 81 Left: 108 CCA: Right: 91 Left: 87 ECA: Right: 119 Left: 73 VERTEBRAL: Right: 47 antegrade Left: 63 antegrade Elevated flow velocities and ICA/CCA ratios have been found to correlate with increased degrees of vessel stenosis, calculated as percentage of diameter relative to a normal segment of distal ICA/CCA FINDINGS: RIGHT CAROTID: No significant stenosis is visualized. Mild plaque. The waveforms are within normal limits. LEFT CAROTID: No significant stenosis is visualized. Mild plaque. The waveforms are within normal limits. VERTEBRAL ARTERIES: Antegrade flow is seen in both vertebral arteries. MISCELLANEOUS: None. CONCLUSION: No hemodynamically significant stenosis in either carotid artery. Chano Odonnell MD on November 14, 2016 at 11:06 Board Certified Radiologist. This report was verified electronically.
--- NOTE | 2016-11-14 12:28 | MB ---
cc: VISHNU HUBER MD DATE OF CONSULTATION: 11/14/2016 REASON FOR CONSULTATION: Atrial fibrillation and CVA. HISTORY OF PRESENT ILLNESS Mr. Acosta is a 61-year-old man who presented to the emergency room with left-sided weakness. Cardiology was initially consulted on essentially arrival, for assistance with atrial fibrillation. The patient refused consultation initially as he was quite upset that he had not been fed. Subsequently the primary team has asked me again to go and evaluate the patient as he is more receptive at this point. This gentleman is a 61-year-old man who does have a history of hypertension, diabetes, CVA, and cocaine abuse. He was subsequently found to have a CVA who presented outside the TPA window. There is concern that he has had a small lacunar infarct. The patient denies any cardiac symptoms, specifically chest pain, palpitations, or shortness of breath. PAST MEDICAL HISTORY: As per the HPI. SOCIAL HISTORY: Occasional alcohol, negative for tobacco, and positive for cocaine. FAMILY HISTORY: Positive for diabetes. ALLERGIES: NO KNOWN DRUG ALLERGIES. OUTPATIENT MEDICATIONS Included: 1. Lisinopril. 2. Gabapentin. 3. Metformin. 4. Flexeril. 5. Insulin. 6. Aspirin. 7. Tramadol CURRENT MEDICATIONS: Per the record. REVIEW OF SYSTEMS The patient has left-sided weakness. Other than this, all 12 systems are negative. PHYSICAL EXAMINATION: On physical examination vital signs are 97.6, 89, 24, blood pressure 149/99. GENERAL: He is a well-appearing man who has left-sided weakness. NECK: His neck is free from JVD. LUNGS: Bilaterally clear to auscultation. CARDIOVASCULAR: He has a normal S1-S2. I did not appreciate any murmurs, rubs, or gallops. ABDOMEN: Soft. EXTREMITIES: Free from edema. Echocardiogram shows an EF of 55 to 60%. There is mild mitral regurgitation. Telemetry was reviewed today and on 11/12/2016. I am unable to find any documentation of atrial fibrillation on his three days of monitoring. At this point I would not pursue any anticoagulation beyond what is typical after a CVA per neurology. I will be available on a p.r.n. basis. Vera Mancini/MALLORIE /10:54 AM /12:22 PM
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
[2016-11-14] MEDS: PRAVASTATIN SOD 40 MG TAB PO SCH (20:37)
[2016-11-15] VITALS (8 sets, daily range): BP systolic 113–163; BP diastolic 73–90; PULSE 57–84; RESP 18–24; TEMP 97.2–98; O2SAT 92–97
[2016-11-15] MEDS: ACETAMINOPHEN/HYDROcodone 325 MG/5 MG TAB PO PRN ×3 (03:55→21:49)
[2016-11-15] MEDS: INSULIN ASPART SUPPLEMENTAL SCALE SQ SCH ×4 (05:27→21:49)
[2016-11-15] MEDS: ASPIRIN 325 MG TAB TUBE SCH (08:50)
[2016-11-15] MEDS: SODIUM CHLORIDE 0.9% FLUSH 5 ML FLUSH IVF SCH ×2 (08:50→21:50)
[2016-11-15] MEDS: LISINOPRIL 20 MG TAB PO SCH (08:50)
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
[2016-11-15] MEDS: PRAVASTATIN SOD 40 MG TAB PO SCH (21:48)
[2016-11-16] VITALS (8 sets, daily range): BP systolic 104–132; BP diastolic 73–80; PULSE 64–82; RESP 18–24; TEMP 96.6–98.1; O2SAT 95–97
[2016-11-16] MEDS: ACETAMINOPHEN/HYDROcodone 325 MG/5 MG TAB PO PRN ×3 (06:15→23:06)
[2016-11-16] MEDS: INSULIN ASPART SUPPLEMENTAL SCALE SQ SCH ×4 (06:16→23:05)
[2016-11-16] MEDS: LISINOPRIL 20 MG TAB PO SCH (08:20)
[2016-11-16] MEDS: ASPIRIN 325 MG TAB TUBE SCH (08:21)
[2016-11-16] MEDS: SODIUM CHLORIDE 0.9% FLUSH 5 ML FLUSH IVF SCH ×2 (08:21→23:05)
--- NOTE | 2016-11-16 13:51 | HHI.DCPOC ---
Discharge Care Plan Diagnosis: (1) CVA (cerebral vascular accident) (2) NOHEMY (acute kidney injury) (3) Type II diabetes mellitus (4) HTN (hypertension) Goals to Promote Your Health * To prevent worsening of your condition and complications * To maintain your health at the optimal level Directions to Meet Your Goals Take your medications as prescribed Follow your dietary instruction Follow activity as directed Keep your appointments as scheduled Take your immunizations and boosters as scheduled If your symptoms worsen call your PCP, if no PCP go to Urgent Care Center or Emergency Room Smoking is Dangerous to Your Health. Avoid second hand smoke Call the 24-hour hour crisis hotline for domestic abuse at Neptali Reyes MD Nov 16, 2016 13:51
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
[2016-11-16] MEDS: PRAVASTATIN SOD 40 MG TAB PO SCH (23:05)
[2016-11-17] VITALS (8 sets, daily range): BP systolic 124–135; BP diastolic 72–84; PULSE 64–91; RESP 18–20; TEMP 97.1–98.1; O2SAT 95–97
[2016-11-17] MEDS: ACETAMINOPHEN/HYDROcodone 325 MG/5 MG TAB PO PRN ×2 (06:05→16:44)
[2016-11-17] MEDS: INSULIN ASPART SUPPLEMENTAL SCALE SQ SCH ×4 (06:08→21:41)
[2016-11-17] MEDS: ASPIRIN 325 MG TAB TUBE SCH (10:03)
[2016-11-17] MEDS: SODIUM CHLORIDE 0.9% FLUSH 5 ML FLUSH IVF SCH ×2 (10:03→21:40)
[2016-11-17] MEDS: LISINOPRIL 20 MG TAB PO SCH (10:03)
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
[2016-11-17] MEDS: metFORMIN HCL 500 MG TAB PO SCH (16:44)
[2016-11-17] MEDS: PRAVASTATIN SOD 40 MG TAB PO SCH (21:39)
[2016-11-18] VITALS: BP 136/86; PULSE 85; RESP 20; TEMP 97.8; O2SAT 98
[2016-11-18 04:00] VITALS: BP 115/67; PULSE 59; RESP 18; TEMP 98.7; O2SAT 96
[2016-11-18] MEDS: INSULIN ASPART SUPPLEMENTAL SCALE SQ SCH ×2 (06:06→11:10)
[2016-11-18 08:00] VITALS: BP 114/73; PULSE 79; RESP 18; TEMP 97.7; O2SAT 96
[2016-11-18] MEDS: LISINOPRIL 20 MG TAB PO SCH (08:57)
[2016-11-18] MEDS: metFORMIN HCL 500 MG TAB PO SCH (08:57)
[2016-11-18] MEDS: ASPIRIN 325 MG TAB TUBE SCH (08:57)
[2016-11-18] MEDS: SODIUM CHLORIDE 0.9% FLUSH 5 ML FLUSH IVF SCH (08:57)
[2016-11-18 09:02] VITALS: PULSE 55
[2016-11-18] MEDS: ACETAMINOPHEN/HYDROcodone 325 MG/5 MG TAB PO PRN (09:24)
[2016-11-18 11:23] VITALS: O2SAT 96
[2016-11-18 12:00] VITALS: BP 104/68; PULSE 82; RESP 20; TEMP 96.4; O2SAT 96
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
[2016-11-29] MEDS ORDERED: GETGO ROLLING W1 MI1 (13:03)
[2016-11-29] MEDS ORDERED: WHEEMIS3 (13:03)
[2016-11-30] MEDS ORDERED: NEUR300C PO (13:52)
[2016-11-30] MEDS ORDERED: DOCU1CAP39 PO (13:52)
[2016-11-30] MEDS ORDERED: PRAV40TA PO (13:52)
[2016-11-30] MEDS ORDERED: LISI-515 PO (13:52)
[2016-11-30] MEDS ORDERED: METF500 PO (13:52)
[2016-11-30] MEDS ORDERED: SITA25 PO (13:52)
[2016-11-30] MEDS ORDERED: ASPI325T PO (13:52)
[2016-11-30] MEDS ORDERED: HYDR-3516 PO (13:52)
[2017-01-05] MEDS ORDERED: HYDR-3516 PO (13:28)
[2017-01-05] MEDS ORDERED: GABA600T PO (13:28)
[2017-03-10] MEDS ORDERED: METF500 PO (10:15)
[2017-03-10] MEDS ORDERED: SITA25 PO (10:15)
[2017-03-10] MEDS ORDERED: TRAM50TA PO (10:20)
== END 2016-11-18 14:36 | DRG 65 ==
LOC: NEPE 16:01 → NEDA 18:15 → N04B 22:56
PROVIDERS: ADMIT Family Medicine; ATTEND Family Medicine
DX: I63.9 Cerebral infarction, unspecified (principal); G81.94 Hemiplegia, unspecified affecting left nondominant side; I10 Essential (primary) hypertension; I48.91 Unspecified atrial fibrillation; R29.810 Facial weakness; I69.398 Other sequelae of cerebral infarction; N28.9 Disorder of kidney and ureter, unspecified; F14.10 Cocaine abuse, uncomplicated; E11.9 Type 2 diabetes mellitus without complications; Z79.84 Long term (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 of oral hypoglycemic drugs; Z79.82 Long term (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 of aspirin; E78.00 Pure hypercholesterolemia, unspecified
CPT/HCPCS: 70450; 71010; 73030; 80048; 80061; 80307; 81001; 82550; 82552; 82948; 83036; 83735; 84443; 84484; 85025; 85610; 85730; 93005; 93306; 93880; J1815; J7030

== ENCOUNTER 2017-06-28 08:42 | Emergency (ER) | payer MEDICAID, OTHER ==
[~2017-06-28 08:42] MED LIST changes: +ASPI325T PO; -ASPI81CH37 CHEW; -CYCL5TAB PO; +DOCU1CAP39 PO; -GABA400C5 PO; +GABA600T PO; +GETGO ROLLING W1 MI1; +HYDR-3516 PO; +LISI-515 PO; -LISI10TA3 PO; +METF500 PO; -METF500T4 PO; -NOVORP2 SQ; +PRAV40TA PO; +SITA25 PO; -VIAG50TA PO; +WHEEMIS3
[2017-06-28 08:45] VITALS: BP 135/85; PULSE 85; RESP 16; TEMP 98.3; O2SAT 97
[2017-06-28 09:11] VITALS: BP 117/63; PULSE 61; RESP 22; TEMP 97.9; O2SAT 97
[2017-06-28] MEDS ORDERED: BENZONATATE 100 MG CAP PO ONE (09:30)
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
--- NOTE | 2017-06-28 10:24 | RADRPT ---
EXAM DATE/TIME: 06/28/2017 09:59 [facility] COMPARISON: CHEST PA & LAT, November 17, 2015, 8:40. INDICATIONS : Coughing and pain in middle of chest for one week MEDICAL HISTORY : Stroke. SURGICAL HISTORY : None. ENCOUNTER: Initial ACUITY: 1 week PAIN SCORE: 4/10 LOCATION: Bilateral chest FINDINGS: PA and lateral views of the chest demonstrate the lungs to be symmetrically aerated without evidence of mass, infiltrate or effusion. The cardiomediastinal contours are unremarkable. Osseous structure s are intact. CONCLUSION: No acute disease. Chano Odonnell MD on June 28, 2017 at 10:22 Board Certified Radiologist. This report was verified electronically.
[2017-06-28] MEDS ORDERED: PRED20 PO (11:12)
[2017-06-28] MEDS ORDERED: BENZ100 PO (11:12)
[2017-06-28] MEDS ORDERED: ALBUAER3 INH (11:12)
--- NOTE | 2017-06-28 14:09 | EKG ---
Date Performed: 06/28/2017 Time Performed: 09:34:13 PTAGE: 61 years EKG: SINUS BRADYCARDIA BORDERLINE ECG Compared to prior tracing no significant change PREVIOUS TRACING : 11/11/2016 18.18 DOCTOR: Eliezer Walker Interpretating Date/Time 06/28/2017 14:06:43
[2017-07-14] MEDS ORDERED: TRAM50TA PO (16:38)
== END 2017-06-28 11:38 | disposition home or self-care (01) ==
LOC: NEPD 08:42
DX: J40 Bronchitis, not specified as acute or chronic (principal); R00.1 Bradycardia, unspecified; M19.90 Unspecified osteoarthritis, unspecified site; E78.00 Pure hypercholesterolemia, unspecified; E11.9 Type 2 diabetes mellitus without complications; I10 Essential (primary) hypertension; F17.210 Nicotine dependence, cigarettes, uncomplicated; Z86.73 Personal history of transient ischemic attack (TIA), and cerebral infarction without residual deficits; Z79.82 Long term (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 of aspirin
CPT/HCPCS: 71020; 93005; 99284

== ENCOUNTER 2017-07-15 11:50 | Inpatient (IN) | payer MEDICAID, OTHER ==
[2017-07-15] VITALS (15 sets, daily range): BP systolic 132–144; BP diastolic 73–87; PULSE 53–82; RESP 15–21; TEMP 98.2–98.8; O2SAT 97–100
[~2017-07-15] VITALS: Ht 190.5 cm; Wt 98.6 kg
[~2017-07-15 11:50] MED LIST changes: +ALBUAER3 INH; +BENZ100 PO; +PRED20 PO
[2017-07-15] MEDS ORDERED: SODIUM CHLOR 0.9% 1000 ML INJ 1,000 ML IV ONE (12:00)
[2017-07-15 12:13] LABS: AUTOMATED NEUTROPHIL # 2.3 TH/MM3 (1.8-7.7); BASOPHIL # 0.1 TH/MM3 (0-0.2); BASOPHIL % 1.4 % (0.0-2.0); EOSINOPHIL # 0.1 TH/MM3 (0-0.4); EOSINOPHIL % 1.1 % (0.0-4.0); HEMATOCRIT 45.8 % (39.0-51.0); HEMO FLAGS DIFF FINAL; LYMPH % 37.8 % (9.0-44.0); LYMPHOCYTE # 1.8 TH/MM3 (1.0-4.8); MEAN CELL VOLUME 93.3 FL (80.0-100.0); MEAN CORPUSCULAR HEMOGLOBIN 33.1 PG (27.0-34.0); MEAN CORPUSCULAR HGB CONC 35.4 % (32.0-36.0); MONO % 10.6 % (0.0-8.0); NEUT % 49.1 % (16.0-70.0); PLATELET COUNT 164 TH/MM3 (150-450); RED BLOOD COUNT 4.91 MIL/MM3 (4.50-5.90); RED CELL DISTRIBUTION WIDTH 12.9 % (11.6-17.2); WHITE BLOOD COUNT 4.7 TH/MM3 (4.0-11.0)
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
[2017-07-15 12:22] LABS: APTT (PATIENT) 24.7 SEC (24.3-30.1); INTERNATIONAL NORMALIZED RATIO 1.2 RATIO; PROTHROMBIN TIME - PATIENT 12.9 SEC (9.8-11.6)
[2017-07-15 12:26] LABS: I-STAT POTASSIUM 3.4 MMOL/L (3.5-4.9)
[2017-07-15] MEDS ORDERED: SODIUM CHLORIDE 0.9% 50 ML BAG IVF ONE (12:30)
[2017-07-15] MEDS ORDERED: ALTEPLASE BOLUS 9 MG/9 ML SYR IV ONE (12:30)
[2017-07-15] MEDS ORDERED: MISCELLANEOUS NURSING INFORMATION XX PRN (12:30)
[2017-07-15] MEDS ORDERED: ALTEPLASE DRIP IV ONE (12:30)
[2017-07-15 12:50] LABS: BACTERIA, URINE RARE /hpf; BLOOD, URINE NEG (NEG); GLUCOSE,URINE 300 mg/dL (NEG); KETONE, URINE NEG (NEG); NITRITE,URINE NEG (NEG); PH, URINE 6.5 (5.0-8.5); SQUAMOUS EPITHELIAL CELL URINE <1 /hpf (0-5); URINE COLOR YELLOW (YELLW/STRAW)
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
[2017-07-15] MEDS ORDERED: NOVOLOGP2 SQ (13:22)
[2017-07-15] MEDS ORDERED: SENNOSIDES 8.6 MG TAB PO PRN (14:45)
[2017-07-15] MEDS ORDERED: BISACODYL 10 MG SUPP RECTAL PRN (14:45)
[2017-07-15] MEDS ORDERED: RESP: ALBUTEROL 2.5 MG/IPRATROPIUM 0.5 MG NEB (PRN) INH (14:45)
[2017-07-15] MEDS ORDERED: LACTULOSE SYRUP 20 GM/30 ML CUP PO PRN (14:45)
[2017-07-15] MEDS ORDERED: MISCELLANEOUS NURSING INFORMATION XX SCH (14:45)
[2017-07-15] MEDS ORDERED: MAGNESIUM HYDROXIDE SUSP 30 ML CUP PO PRN (14:45)
[2017-07-15] MEDS ORDERED: CHLORHEXIDINE GLUCONATE 2 % 1 PACK (2 CLOTHS) TOP PRN (14:45)
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
[2017-07-15] MEDS ORDERED: SODIUM CHLOR 0.9% 1000 ML INJ 1,000 ML IV SCH (15:00)
[2017-07-15] MEDS: SODIUM CHLOR 0.9% 1000 ML INJ 1,000 ML IV SCH (15:00)
[2017-07-15 15:06] LABS: HDL CHOLESTEROL 39.4 MG/DL (40.0-60.0); LDL CHOLESTEROL 87 MG/DL (0-99)
[2017-07-15] MEDS ORDERED: IOHEXOL 350 MG/ML 10 ML VIAL (for RAD DIAG) IVCONTRAST ONE (15:40)
[2017-07-15] MEDS ORDERED: LORazepam 2 MG/ML VIAL IV PUSH PRN (15:45)
--- NOTE | 2017-07-15 16:02 | RADRPT ---
EXAM DATE/TIME: 07/15/2017 15:17 [facility] COMPARISON: No previous studies available for comparison. INDICATIONS : Stroke Alert, general weakness. IV CONTRAST: 66 cc Omnipaque 350 (iohexol) IV RADIATION DOSE: 17.07 CTDIvol (mGy) MEDICAL HISTORY : Hypertension. Diabetes mellitus type 2. Renal failure, chronic. SURGICAL HISTORY : Appendectomy. ENCOUNTER: Initial ACUITY: 1 day PAIN SCALE: 4/10 LOCATION: Bilateral cranial TECHNIQUE: Volumetric scanning was performed using a multi-row detector CT scanner. The data was post processed with a variety of visualization algorithms including full volume maximum intensity projection, multi -planar sliding thin slab reformation, curved planar reformation, and surface rendering techniques. Using automated exposure control and adjustment of the mA and/or kV according to patient size, radiat ion dose was kept as low as reasonably achievable to obtain optimal diagnostic quality images. DICO M format image data is available electronically for review and comparison. FINDINGS: Anterior circulation: Distal intracranial internal carotid arteries are patent with flow extending to the middle and anteri or cerebral arteries. Right A1 segment is not visualized. The right anterior cerebral artery opacifie s via the anterior commuting artery. There is no evidence for aneurysm, vessel truncation or stenosis , and no evidence for vascular malformation. Posterior circulation: Symmetric distal vertebral arteries with flow extending to basilar artery. There is no evidence for aneurysm, vessel truncation or stenosis, and no evidence for vascular malformation. CONCLUSION: 1. 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 2. Otherwise, unremarkable head CT examination. Dennis Méndez MD on July 15, 2017 at 15:58 Board Certified Radiologist. This report was verified electronically.
--- NOTE | 2017-07-15 16:05 | RADRPT ---
EXAM DATE/TIME: 07/15/2017 15:17 [facility] COMPARISON: CT BRAIN W/O CONTRAST, July 15, 2017, 11:53. CTA BRAIN W 3D RECON, July 15, 2017, 15:17. INDICATIONS : Stroke alert-general weakness. IV CONTRAST: 66 cc Omnipaque 350 (iohexol) IV RADIATION DOSE: 17.07 CTDIvol (mGy) MEDICAL HISTORY : Hypertension. Diabetes mellitus type 2. Renal failure, chronic. SURGICAL HISTORY : Appendectomy. ENCOUNTER: Initial ACUITY: 1 day PAIN SCALE: 4/10 LOCATION: Bilateral cranial Elevated flow velocities and ICA/CCA ratios have been found to correlate with increased degrees of vessel stenosis, calculated as percentage of diameter relative to a normal segment of distal ICA/CCA. TECHNIQUE: Volumetric scanning was performed using a multirow detector CT scanner. The data was post processed with a variety of visualization algorithms including full-volume maximum intensity projection, multip lanar sliding thin-slab reformation, curved-planar reformation, and surface-rendering techniques. Us ing automated exposure control and adjustment of the mA and/or kV according to patient size, radiatio n dose was kept as low as reasonably achievable to obtain optimal diagnostic quality images. DICOM f ormat image data is available electronically for review and comparison. FINDINGS: AORTIC ARCH: There is a three-vessel origin of the great vessels from the aorta. No evidence of ostial narrowing. RIGHT CAROTID: The common carotid artery is intact. The carotid bulb has a normal configuration without ulceration o r narrowing. The internal carotid artery lumen is smooth without stenosis. The external carotid lorenzo ry is intact. LEFT CAROTID: The common carotid artery is intact. The carotid bulb has a normal configuration without ulceration or narrowing. The internal carotid artery lumen is smooth without stenosis. The external carotid ar ginger is intact. VERTEBRALS: The vertebral arteries have a symmetric diameter. No stenotic lesions are seen. CONCLUSION: Normal examination. Jose Geiger MD on July 15, 2017 at 15:59 Board Certified Radiologist. This report was verified electronically.
[2017-07-15 16:50] LABS: HEMOGLOBIN A1a 0.9 %; HEMOGLOBIN A1b 2.2 %; HEMOGLOBIN Ao 80.1 %; HEMOGLOBIN LA1C 2.6 %; HEMOGLOBIN P3 4.3 %
--- NOTE | 2017-07-15 17:40 | MG ---
cc: BASILIO ROMERO MD Lab No: [id number] Date: 07/15/2017 Age: 61 Sex: M Race: DATE OF : 1955 HISTORY: 61-year-old history of weakness, slurred speech stiffening of the left arm. FINDINGS: Posterior rhythm demonstrates well-formed alpha activity 79 Hz 20-40 microvolts low amplitude in the frontal channels good anterior-posterior gradient attenuation slowing of background with transition into drowsy state followed by stage I sleep stage II sleep with the appearance of K complex and spindles. Reduced driving with photic stimulation. Single lead EKG showing sinus rhythm with premature contractions. INTERPRETATION Normal awake sleep EEG. Clinical correlation Basilio Romero MD MG/ /4:54 PM /5:36 PM
[2017-07-15] MEDS: DOCUSATE SODIUM 50 MG/SENNA 8.6 MG TAB PO SCH (19:57)
[2017-07-15] MEDS: FAMOTIDINE 20 MG/2 ML VIAL IV PUSH SCH (19:57)
[2017-07-15] MEDS: MULTIVITAMIN INJ 10 ML, THIAMINE INJ 100 MG, FOLIC ACID INJ 1 MG in SODIUM CHLORID 0.9%... IV SCH (20:20)
[2017-07-16] VITALS (12 sets, daily range): BP systolic 135–153; BP diastolic 65–80; PULSE 51–80; RESP 20–22; TEMP 98–98.3; O2SAT 96–98
[2017-07-16] MEDS: CHLORHEXIDINE GLUCONATE 2 % 1 PACK (2 CLOTHS) TOP SCH (04:00)
[2017-07-16] MEDS: SODIUM CHLOR 0.9% 1000 ML INJ 1,000 ML IV SCH ×2 (04:11→14:50)
--- NOTE | 2017-07-16 05:18 | EKG ---
Date Performed: 07/15/2017 Time Performed: 12:10:40 PTAGE: 61 years EKG: Sinus rhythm POSSIBLE LEFT ATRIAL ENLARGEMENT POSSIBLE LEFT VENTRICULAR HYPERTROPHY ABNORMAL ECG PREVIOUS TRACING : 06/28/2017 09.34 DOCTOR: Denis Jacinto Interpretating Date/Time 07/16/2017 05:09:14
[2017-07-16] MEDS: DOCUSATE SODIUM 50 MG/SENNA 8.6 MG TAB PO SCH ×2 (08:33→21:43)
[2017-07-16] MEDS: FAMOTIDINE 20 MG/2 ML VIAL IV PUSH SCH ×2 (08:33→21:13)
[2017-07-16] MEDS: MULTIVITAMIN INJ 10 ML, THIAMINE INJ 100 MG, FOLIC ACID INJ 1 MG in SODIUM CHLORID 0.9%... IV SCH (08:35)
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
[2017-07-16] MEDS ORDERED: DEXTROSE 50% IN WATER 50 ML VIAL(D50) IV PUSH PRN (12:30)
[2017-07-16] MEDS ORDERED: GLUCAGON 1 MG/ML VIAL OTHER PRN (12:30)
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
[2017-07-16 13:41] LABS: ALT (GPT) 51 U/L (12-78); ANION GAP 5 MEQ/L (5-15); AST (GOT) 37 U/L (15-37); BICARBONATE 28.7 MEQ/L (21.0-32.0); BLOOD UREA NITROGEN 7 MG/DL (7-18); CHLORIDE 104 MEQ/L (98-107); GLOMERULAR FILTRATION RATE 127 ML/MIN (>89); POTASSIUM 3.5 MEQ/L (3.5-5.1); SODIUM (NA) 138 MEQ/L (136-145)
[2017-07-16 13:42] LABS: MAGNESIUM 1.5 MG/DL (1.5-2.5)
[2017-07-16 13:44] LABS: ALKALINE PHOSPHATASE 58 U/L (45-117); INDIRECT BILIRUBIN 0.2 MG/DL (0.0-0.8); TOTAL BILIRUBIN ADULT 0.4 MG/DL (0.2-1.0)
[2017-07-16 13:48] LABS: BASOPHIL # 0.1 TH/MM3 (0-0.2); BASOPHIL % 1.3 % (0.0-2.0); EOSINOPHIL # 0.1 TH/MM3 (0-0.4); HEMATOCRIT 42.4 % (39.0-51.0); HEMO FLAGS DIFF FINAL; LYMPH % 43.5 % (9.0-44.0); MEAN CORPUSCULAR HEMOGLOBIN 32.3 PG (27.0-34.0); MEAN CORPUSCULAR HGB CONC 34.7 % (32.0-36.0); MONO % 9.8 % (0.0-8.0); NEUT % 42.4 % (16.0-70.0); PLATELET COUNT 152 TH/MM3 (150-450); RED BLOOD COUNT 4.55 MIL/MM3 (4.50-5.90); RED CELL DISTRIBUTION WIDTH 12.9 % (11.6-17.2); WHITE BLOOD COUNT 4.7 TH/MM3 (4.0-11.0)
[2017-07-16 13:57] LABS: APTT (PATIENT) 26.6 SEC (24.3-30.1); INTERNATIONAL NORMALIZED RATIO 1.2 RATIO; PROTHROMBIN TIME - PATIENT 13.1 SEC (9.8-11.6)
[2017-07-16] MEDS: ACETAMINOPHEN/HYDROcodone 325 MG/10 MG TAB PO PRN ×2 (14:58→21:58)
[2017-07-16] MEDS: GABAPENTIN 300 MG CAP PO SCH ×2 (14:59→21:43)
--- NOTE | 2017-07-16 15:54 | RADRPT ---
EXAM DATE/TIME: 07/16/2017 14:54 [facility] COMPARISON: CHEST PA & LAT, June 28, 2017, 9:59. INDICATIONS : Chest pain for two days. MEDICAL HISTORY : Hypertension. Stroke. Cardiovascular disease. SURGICAL HISTORY : None. ENCOUNTER: Subsequent ACUITY: 2 days PAIN SCORE: 7/10 LOCATION: Bilateral chest FINDINGS: A single view of the chest demonstrates the lungs to be symmetrically aerated without evidence of mas s, infiltrate or effusion. The cardiomediastinal contours are unremarkable. Osseous structures are intact. CONCLUSION: No acute disease. Jose Geiger MD on July 16, 2017 at 15:52 Board Certified Radiologist. This report was verified electronically.
--- NOTE | 2017-07-16 17:35 | ECHRPT ---
Indication: cva/tia CONCLUSIONS Mildly dilated left ventricle. Wall thickness is normal. The left ventricular systolic function is normal with an estimated ejection fraction in the range of 55-60%. Mild to moderate mitral valve regurgitation. There is trace tricuspid valve regurgitation. Aortic valve sclerosis. There is estimated mild pulmonary hypertension present (40 mmHg). BP: 138 / 85 HR: 53 Rhythm: MEASUREMENTS (Male / Female) Normal Values Technical Quality:Good 2D ECHO LV Diastolic Diameter PLAX 5.5 cm 4.2 - 5.9 / 3.9 - 5.3 cm LV Systolic Diameter PLAX 4.0 cm IVS Diastolic Thickness 0.9 cm 0.6 - 1.0 / 0.6 - 0.9 cm LVPW Diastolic Thickness 0.7 cm 0.6 - 1.0 / 0.6 - 0.9 cm LV Relative Wall Thickness 0.3 LA Systolic Diameter LX 3.8 cm 3.0 - 4.0 / 2.7 - 3.8 cm M-MODE Aortic Root Diameter MM 3.1 cm AV Cusp Separation MM 2.0 cm DOPPLER MR Peak Velocity 529.0 cm/s MR Peak Gradient 111.9 mmHg Mitral E Point Velocity 78.0 cm/s Mitral A Point Velocity 59.2 cm/s Mitral E to A Ratio 1.3 TR Peak Velocity 297.0 cm/s TR Peak Gradient 35.3 mmHg FINDINGS LEFT VENTRICLE Mildly dilated left ventricle. Wall thickness is normal. The left ventricular systolic function is normal with an estimated ejection fraction in the range of 55-60%. RIGHT VENTRICLE Normal right ventricular size and systolic function. LEFT ATRIUM The left atrial size is normal. RIGHT ATRIUM The right atrial size is normal. ATRIAL SEPTUM Normal atrial septal thickness without atrial level shunting by limited color doppler interrogation. AORTA The aortic root and proximal ascending aorta are normal in size on limited imaging. MITRAL VALVE Mild to moderate mitral valve regurgitation. AORTIC VALVE Trileaflet aortic valve. No aortic valve stenosis or regurgitation. TRICUSPID VALVE There is trace tricuspid valve regurgitation. There is estimated mild pulmonary hypertension present (40 mmHg). PULMONARY VALVE The pulmonary valve is not well visualized. VESSELS The inferior vena cava is normal in size. PERICARDIUM No pericardial effusion. Garth Silva MD, FACC (Electronically Signed) Final Date:16 July 2017 17:34
[2017-07-16] MEDS: INSULIN ASPART SUPPLEMENTAL SCALE SQ SCH ×2 (18:11→21:00)
[2017-07-16] MEDS: ATORVASTATIN 20 MG TAB PO SCH (21:43)
[2017-07-17] VITALS: BP 146/85; PULSE 62; RESP 20; TEMP 98.1; O2SAT 97
[2017-07-17] MEDS: SODIUM CHLOR 0.9% 1000 ML INJ 1,000 ML IV SCH (02:45)
[2017-07-17] MEDS: CHLORHEXIDINE GLUCONATE 2 % 1 PACK (2 CLOTHS) TOP SCH (04:00)
[2017-07-17 05:24] VITALS: BP 129/78; PULSE 60; RESP 20; TEMP 97.5; O2SAT 95
--- NOTE | 2017-07-17 06:01 | EKG ---
Date Performed: 07/16/2017 Time Performed: 14:38:49 PTAGE: 61 years EKG: SINUS BRADYCARDIA MODERATE VOLTAGE CRITERIA FOR LVH, CONSIDER NORMAL VARIANT BORDERLINE ECG PREVIOUS TRACING : 07/15/2017 12.10 DOCTOR: Denis Jacinto Interpretating Date/Time 07/17/2017 05:57:59
[2017-07-17] MEDS: GABAPENTIN 300 MG CAP PO SCH ×3 (06:22→21:20)
[2017-07-17] MEDS: INSULIN ASPART SUPPLEMENTAL SCALE SQ SCH ×4 (07:56→21:00)
[2017-07-17] MEDS: FAMOTIDINE 20 MG/2 ML VIAL IV PUSH SCH ×2 (07:58→21:20)
[2017-07-17] MEDS: DOCUSATE SODIUM 50 MG/SENNA 8.6 MG TAB PO SCH ×2 (07:59→21:20)
[2017-07-17 08:00] VITALS: BP 160/89; PULSE 49; RESP 20; TEMP 97.3; O2SAT 96
[2017-07-17] MEDS: MULTIVITAMIN INJ 10 ML, THIAMINE INJ 100 MG, FOLIC ACID INJ 1 MG in SODIUM CHLORID 0.9%... IV SCH (10:44)
[2017-07-17] MEDS: ACETAMINOPHEN/HYDROcodone 325 MG/10 MG TAB PO PRN ×4 (10:45→21:20)
[2017-07-17 12:00] VITALS: BP 154/93; PULSE 56; RESP 18; TEMP 97.4; O2SAT 95
[2017-07-17] MEDS: ASPIRIN EC 325 MG TABEC PO SCH (12:52)
[2017-07-17] MEDS: HEPARIN SODIUM - SQ 10,000 UNITS/ML VIAL SQ SCH ×2 (12:52→21:20)
[2017-07-17] MEDS ORDERED: POTASSIUM CHLORIDE 25 MEQ EFFERVESCENT TAB PO ONE (14:45)
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
[2017-07-17] MEDS: POLYETHYLENE GLYCOL 17 GM PKG PO SCH (14:58)
[2017-07-17] MEDS ORDERED: ASPIRIN 325 MG TAB PO SCH (15:00)
[2017-07-17 16:00] VITALS: BP 145/88; PULSE 49; RESP 18; TEMP 97.6; O2SAT 98
[2017-07-17] MEDS: INSULIN DETEMIR 100 UNITS/ML VIAL SQ SCH (16:29)
[2017-07-17 20:00] VITALS: BP 155/88; PULSE 50; RESP 20; TEMP 95.2; O2SAT 98
[2017-07-17] MEDS: ATORVASTATIN 20 MG TAB PO SCH (21:20)
[2017-07-18] VITALS (8 sets, daily range): BP systolic 134–156; BP diastolic 78–93; PULSE 51–75; RESP 19–20; TEMP 97.5–98.2; O2SAT 96–99
[2017-07-18] MEDS: ACETAMINOPHEN/HYDROcodone 325 MG/10 MG TAB PO PRN ×4 (02:42→22:49)
[2017-07-18] MEDS: CHLORHEXIDINE GLUCONATE 2 % 1 PACK (2 CLOTHS) TOP SCH (04:00)
[2017-07-18] MEDS: GABAPENTIN 300 MG CAP PO SCH ×3 (05:50→22:46)
[2017-07-18] MEDS: INSULIN ASPART SUPPLEMENTAL SCALE SQ SCH ×4 (08:00→21:00)
[2017-07-18] MEDS: INSULIN DETEMIR 100 UNITS/ML VIAL SQ SCH (09:00)
[2017-07-18] MEDS: DOCUSATE SODIUM 50 MG/SENNA 8.6 MG TAB PO SCH ×2 (09:48→22:45)
[2017-07-18] MEDS: POLYETHYLENE GLYCOL 17 GM PKG PO SCH (09:48)
[2017-07-18] MEDS: FAMOTIDINE 20 MG/2 ML VIAL IV PUSH SCH ×2 (09:48→22:46)
[2017-07-18] MEDS: ASPIRIN EC 325 MG TABEC PO SCH (09:48)
[2017-07-18] MEDS: HEPARIN SODIUM - SQ 10,000 UNITS/ML VIAL SQ SCH ×2 (09:49→22:46)
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
[2017-07-18] MEDS: LISINOPRIL 20 MG TAB PO SCH (16:30)
[2017-07-18 22:23] LABS: ALKALINE PHOSPHATASE 71 U/L (45-117); ALT (GPT) 56 U/L (12-78); TOTAL BILIRUBIN ADULT 0.3 MG/DL (0.2-1.0)
[2017-07-18 22:32] LABS: ANION GAP 8 MEQ/L (5-15); AST (GOT) 53 U/L (15-37); BICARBONATE 28.1 MEQ/L (21.0-32.0); BLOOD UREA NITROGEN 9 MG/DL (7-18); CHLORIDE 101 MEQ/L (98-107); GLOMERULAR FILTRATION RATE 110 ML/MIN (>89); POTASSIUM 3.7 MEQ/L (3.5-5.1); SODIUM (NA) 137 MEQ/L (136-145)
[2017-07-18] MEDS: ATORVASTATIN 20 MG TAB PO SCH (22:46)
[2017-07-19] VITALS (8 sets, daily range): BP systolic 91–170; BP diastolic 53–87; PULSE 73–103; RESP 20; TEMP 97.4–102.3; O2SAT 93–97
[2017-07-19] MEDS: CHLORHEXIDINE GLUCONATE 2 % 1 PACK (2 CLOTHS) TOP SCH (03:34)
[2017-07-19] MEDS: GABAPENTIN 300 MG CAP PO SCH ×3 (05:11→21:25)
[2017-07-19] MEDS: INSULIN ASPART SUPPLEMENTAL SCALE SQ SCH ×4 (08:00→21:00)
[2017-07-19] MEDS: POLYETHYLENE GLYCOL 17 GM PKG PO SCH (09:00)
[2017-07-19] MEDS: INSULIN DETEMIR 100 UNITS/ML VIAL SQ SCH (09:00)
[2017-07-19] MEDS: FAMOTIDINE 20 MG/2 ML VIAL IV PUSH SCH ×2 (09:10→21:25)
[2017-07-19] MEDS: ACETAMINOPHEN/HYDROcodone 325 MG/10 MG TAB PO PRN ×3 (09:11→21:27)
[2017-07-19] MEDS: LISINOPRIL 20 MG TAB PO SCH (09:14)
[2017-07-19] MEDS: HEPARIN SODIUM - SQ 10,000 UNITS/ML VIAL SQ SCH ×2 (09:14→21:26)
[2017-07-19] MEDS: DOCUSATE SODIUM 50 MG/SENNA 8.6 MG TAB PO SCH ×2 (09:14→21:25)
[2017-07-19] MEDS: ASPIRIN EC 325 MG TABEC PO SCH (09:14)
[2017-07-19] MEDS ORDERED: ACETAMIN 325 MG/BUTALBITAL 50 MG/CAFFEINE 40 MG TAB PO ONE (13:00)
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
--- NOTE | 2017-07-19 14:25 | RADRPT ---
EXAM DATE/TIME: 07/19/2017 13:29 [facility] COMPARISON: CHEST SINGLE AP, July 16, 2017, 14:54. INDICATIONS : Fever, short of breath, aches all over, evaluate pneumonia MEDICAL HISTORY : Hypertension. Stroke. Cardiovascular disease. diabetic SURGICAL HISTORY : None. ENCOUNTER: Subsequent ACUITY: 4 - 6 days PAIN SCORE: 7/10 LOCATION: Bilateral chest FINDINGS: Patchy airspace disease in the right lower lung zone with minimal airspace disease at the left lung b ase. Cardiome subchondral within normal limits. Bony thorax is intact. CONCLUSION: 1. Apparent new patchy airspace disease in the right lower lung zone concerning for developing pneumo marisabel or aspiration. This can be better evaluated with formal PA and lateral views of the chest as maribeth cated. 2. Minimal left lung base airspace disease, likely atelectasis. Dennis Méndez MD on July 19, 2017 at 14:22 Board Certified Radiologist. This report was verified electronically.
[2017-07-19] MEDS: IBUPROFEN 800 MG TAB PO PRN (14:44)
[2017-07-19] MEDS ORDERED: Vancomycin Consult Pharmacy 1 EA OTHER SCH (14:45)
[2017-07-19 15:18] LABS: AUTOMATED NEUTROPHIL # 8.2 TH/MM3 (1.8-7.7); BASOPHIL # 0.1 TH/MM3 (0-0.2); BASOPHIL % 0.6 % (0.0-2.0); EOSINOPHIL % 0.1 % (0.0-4.0); HEMO FLAGS DIFF FINAL; LYMPHOCYTE # 0.4 TH/MM3 (1.0-4.8); MEAN CELL VOLUME 93.4 FL (80.0-100.0); MEAN CORPUSCULAR HEMOGLOBIN 33.1 PG (27.0-34.0); MEAN CORPUSCULAR HGB CONC 35.4 % (32.0-36.0); MONO % 3.9 % (0.0-8.0); NEUT % 91.4 % (16.0-70.0); PLATELET COUNT 158 TH/MM3 (150-450); RED BLOOD COUNT 4.92 MIL/MM3 (4.50-5.90); RED CELL DISTRIBUTION WIDTH 12.7 % (11.6-17.2); WHITE BLOOD COUNT 8.9 TH/MM3 (4.0-11.0)
[2017-07-19] MEDS: PIPERACIL-TAZO 4.5 GM PREMIX 100 ML IV SCH ×2 (17:24→21:41)
[2017-07-19] MEDS: VANCOMYCIN INJ 1,500 MG in SODIUM CHLORID 0.9% 500 ML INJ 500 ML IV SCH (17:28)
[2017-07-19 19:08] LABS: BLOOD, URINE NEG (NEG); GLUCOSE,URINE 300 mg/dL (NEG); HYALINE CAST, URINE 3 /lpf (RARE); KETONE, URINE NEG (NEG); MUCUS URINE FEW /lpf (OCC); NITRITE,URINE NEG (NEG); PH, URINE 5.5 (5.0-8.5); SQUAMOUS EPITHELIAL CELL URINE 2 /hpf (0-5); URINE COLOR YELLOW (YELLW/STRAW)
[2017-07-19 19:09] LABS: COMMENT (UR) CULTURE INDICATED; CULTURE IF INDICATED CULTURE INDICATED
[2017-07-19] MEDS: ATORVASTATIN 20 MG TAB PO SCH (21:25)
[2017-07-20] VITALS (7 sets, daily range): BP systolic 91–146; BP diastolic 55–79; PULSE 65–82; RESP 16–20; TEMP 97.2–98.6; O2SAT 94–97
[2017-07-20] MEDS: CHLORHEXIDINE GLUCONATE 2 % 1 PACK (2 CLOTHS) TOP SCH (03:58)
[2017-07-20] MEDS: PIPERACIL-TAZO 4.5 GM PREMIX 100 ML IV SCH ×2 (04:03→09:10)
[2017-07-20] MEDS: VANCOMYCIN INJ 1,500 MG in SODIUM CHLORID 0.9% 500 ML INJ 500 ML IV SCH (04:08)
[2017-07-20] MEDS: GABAPENTIN 300 MG CAP PO SCH ×3 (05:41→21:22)
[2017-07-20] MEDS: LISINOPRIL 20 MG TAB PO SCH (08:33)
[2017-07-20] MEDS: DOCUSATE SODIUM 50 MG/SENNA 8.6 MG TAB PO SCH ×2 (08:33→21:22)
[2017-07-20] MEDS: INSULIN ASPART SUPPLEMENTAL SCALE SQ SCH ×4 (08:33→21:00)
[2017-07-20] MEDS: ASPIRIN EC 325 MG TABEC PO SCH (08:33)
[2017-07-20] MEDS: HEPARIN SODIUM - SQ 10,000 UNITS/ML VIAL SQ SCH ×2 (08:34→21:22)
[2017-07-20] MEDS: INSULIN DETEMIR 100 UNITS/ML VIAL SQ SCH (08:34)
[2017-07-20] MEDS: FAMOTIDINE 20 MG/2 ML VIAL IV PUSH SCH ×2 (08:34→21:22)
[2017-07-20] MEDS: ACETAMINOPHEN/HYDROcodone 325 MG/10 MG TAB PO PRN ×3 (08:34→21:23)
[2017-07-20] MEDS: POLYETHYLENE GLYCOL 17 GM PKG PO SCH (08:34)
--- NOTE | 2017-07-20 09:03 | RADRPT ---
EXAM DATE/TIME: 07/20/2017 08:42 [facility] COMPARISON: CHEST PA & LAT, June 28, 2017, 9:59. INDICATIONS : Short of breath. MEDICAL HISTORY : Hypertension. Stroke. SURGICAL HISTORY : None. ENCOUNTER: Initial ACUITY: 2 days PAIN SCORE: 0/10 LOCATION: Bilateral chest FINDINGS: PA and lateral views of the chest demonstrate the lungs to be symmetrically aerated without evidence of mass, infiltrate or effusion. The cardiomediastinal contours are unremarkable. Osseous structure s are intact. CONCLUSION: No acute disease. Daniel Montanez MD FACR on July 20, 2017 at 9:02 Board Certified Radiologist. This report was verified electronically.
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
[2017-07-20] MEDS ORDERED: ALBUTEROL SULFATE 90 MCG/ACT HFA 8 GM INHALER INH ONE (12:45)
[2017-07-20] MEDS: DOXYCYCLINE INJ 100 MG in SODIUM CHLORIDE 0.9% INJ 100 ML IV SCH (13:34)
--- NOTE | 2017-07-20 16:48 | RADRPT ---
EXAM DATE/TIME: 07/20/2017 14:42 [facility] COMPARISON: No previous studies available for comparison. INDICATIONS : Abscess. MEDICAL HISTORY : Stroke. Hypercholesterolemia. Hypertension. Glaucoma. Hyperlipidemia. Dyspnea. Renal failure. Kidney stones. Arthritis. Osteoarthritis. Back pain. Diabetes. Substance use. SURGICAL HISTORY : Appendectomy. Right foot surgery. ENCOUNTER: Initial ACUITY: 1 day PAIN SCORE: 4/10 LOCATION: Left anterior thigh. AREA EVALUATED: Left anterior thigh. FINDINGS: MASSES: None. FLUID COLLECTIONS: None. OTHER: Negative. CONCLUSION: 1. No evidence of abscess Jalen Moss MD on July 20, 2017 at 16:46 Board Certified Radiologist. This report was verified electronically.
[2017-07-20] MEDS: POVIDONE IODINE 10% OINT 30 GM TUBE TOPICAL SCH (19:45)
[2017-07-20] MEDS: ALBUTEROL SULFATE 90 MCG/ACT HFA 8 GM INHALER INH PRN (21:23)
[2017-07-20] MEDS: ATORVASTATIN 20 MG TAB PO SCH (21:34)
[2017-07-21] VITALS (8 sets, daily range): BP systolic 135–160; BP diastolic 65–88; PULSE 56–83; RESP 16–20; TEMP 97–98.3; O2SAT 96–98
[2017-07-21] MEDS: DOXYCYCLINE INJ 100 MG in SODIUM CHLORIDE 0.9% INJ 100 ML IV SCH (01:05)
[2017-07-21] MEDS: CHLORHEXIDINE GLUCONATE 2 % 1 PACK (2 CLOTHS) TOP SCH (01:06)
[2017-07-21] MEDS: ACETAMINOPHEN/HYDROcodone 325 MG/10 MG TAB PO PRN ×3 (02:09→11:53)
[2017-07-21] MEDS ORDERED: PHARMACY ORDERED LAB ONE (04:45)
[2017-07-21] MEDS: GABAPENTIN 300 MG CAP PO SCH ×3 (05:52→21:51)
[2017-07-21] MEDS: DOCUSATE SODIUM 50 MG/SENNA 8.6 MG TAB PO SCH ×2 (09:08→21:51)
[2017-07-21] MEDS: ASPIRIN EC 325 MG TABEC PO SCH (09:08)
[2017-07-21] MEDS: HEPARIN SODIUM - SQ 10,000 UNITS/ML VIAL SQ SCH ×2 (09:09→21:51)
[2017-07-21] MEDS: INSULIN DETEMIR 100 UNITS/ML VIAL SQ SCH (09:09)
[2017-07-21] MEDS: INSULIN ASPART SUPPLEMENTAL SCALE SQ SCH ×4 (09:09→21:53)
[2017-07-21] MEDS: POLYETHYLENE GLYCOL 17 GM PKG PO SCH (09:09)
[2017-07-21] MEDS: FAMOTIDINE 20 MG/2 ML VIAL IV PUSH SCH ×2 (09:09→21:51)
[2017-07-21] MEDS: POVIDONE IODINE 10% OINT 30 GM TUBE TOPICAL SCH (09:10)
[2017-07-21] MEDS: ALBUTEROL SULFATE 90 MCG/ACT HFA 8 GM INHALER INH PRN (10:30)
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
[2017-07-21] MEDS ORDERED: METOCLOPRAMIDE HCL 10 MG/2 ML VIAL IV PUSH ONE (11:15)
[2017-07-21] MEDS: LISINOPRIL 10 MG TAB PO SCH (11:33)
[2017-07-21] MEDS: SODIUM CHLOR 0.9% 1000 ML INJ 1,000 ML IV SCH ×2 (16:15→20:34)
[2017-07-21] MEDS: PIPERACIL-TAZO 4.5 GM PREMIX 100 ML IV SCH ×4 (18:37→21:57)
[2017-07-21] MEDS: ACETAMINOPHEN/HYDROcodone 325 MG/5 MG TAB PO PRN ×2 (18:40→21:51)
[2017-07-21] MEDS: ATORVASTATIN 20 MG TAB PO SCH (21:50)
[2017-07-22] VITALS (7 sets, daily range): BP systolic 142–167; BP diastolic 76–90; PULSE 46–84; RESP 18–20; TEMP 97.4–98; O2SAT 93–98
[2017-07-22] MEDS: PIPERACIL-TAZO 4.5 GM PREMIX 100 ML IV SCH ×5 (02:03→21:05)
[2017-07-22] MEDS: SODIUM CHLOR 0.9% 1000 ML INJ 1,000 ML IV SCH (02:15)
[2017-07-22] MEDS: CHLORHEXIDINE GLUCONATE 2 % 1 PACK (2 CLOTHS) TOP SCH (04:00)
[2017-07-22] MEDS: GABAPENTIN 300 MG CAP PO SCH ×3 (05:46→20:55)
[2017-07-22] MEDS: ACETAMINOPHEN/HYDROcodone 325 MG/10 MG TAB PO PRN ×4 (05:47→20:55)
[2017-07-22] MEDS: INSULIN ASPART SUPPLEMENTAL SCALE SQ SCH ×4 (08:00→20:56)
[2017-07-22] MEDS: DOCUSATE SODIUM 50 MG/SENNA 8.6 MG TAB PO SCH ×2 (08:22→20:55)
[2017-07-22] MEDS: LISINOPRIL 10 MG TAB PO SCH (08:22)
[2017-07-22] MEDS: ASPIRIN EC 325 MG TABEC PO SCH (08:22)
[2017-07-22] MEDS: HEPARIN SODIUM - SQ 10,000 UNITS/ML VIAL SQ SCH ×2 (08:23→20:56)
[2017-07-22] MEDS: FAMOTIDINE 20 MG/2 ML VIAL IV PUSH SCH ×2 (08:23→20:55)
[2017-07-22] MEDS: POLYETHYLENE GLYCOL 17 GM PKG PO SCH (08:23)
[2017-07-22] MEDS: POVIDONE IODINE 10% OINT 30 GM TUBE TOPICAL SCH (08:26)
[2017-07-22] MEDS: INSULIN DETEMIR 100 UNITS/ML VIAL SQ SCH (08:26)
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
[2017-07-22] MEDS: LEVOFLOXACIN 750 MG TAB PO SCH (13:00)
[2017-07-22] MEDS: IBUPROFEN 800 MG TAB PO PRN (15:28)
[2017-07-22] MEDS: ATORVASTATIN 20 MG TAB PO SCH (20:55)
[2017-07-23] VITALS (9 sets, daily range): BP systolic 138–172; BP diastolic 73–95; PULSE 43–51; RESP 20; TEMP 97.5–97.8; O2SAT 94–99
[2017-07-23] MEDS: PIPERACIL-TAZO 4.5 GM PREMIX 100 ML IV SCH ×3 (03:16→14:02)
[2017-07-23] MEDS: CHLORHEXIDINE GLUCONATE 2 % 1 PACK (2 CLOTHS) TOP SCH (04:00)
[2017-07-23] MEDS: GABAPENTIN 300 MG CAP PO SCH ×3 (06:02→21:11)
[2017-07-23] MEDS: ACETAMINOPHEN/HYDROcodone 325 MG/10 MG TAB PO PRN ×4 (06:03→21:12)
[2017-07-23] MEDS: INSULIN ASPART SUPPLEMENTAL SCALE SQ SCH ×4 (08:00→21:03)
[2017-07-23 08:24] LABS: AUTOMATED NEUTROPHIL # 2.2 TH/MM3 (1.8-7.7); BASOPHIL # 0.1 TH/MM3 (0-0.2); BASOPHIL % 1.3 % (0.0-2.0); EOSINOPHIL # 0.1 TH/MM3 (0-0.4); EOSINOPHIL % 2.8 % (0.0-4.0); HEMATOCRIT 42.3 % (39.0-51.0); HEMO FLAGS DIFF FINAL; LYMPH % 38.7 % (9.0-44.0); LYMPHOCYTE # 1.8 TH/MM3 (1.0-4.8); MEAN CELL VOLUME 93.2 FL (80.0-100.0); MEAN CORPUSCULAR HEMOGLOBIN 32.7 PG (27.0-34.0); MEAN CORPUSCULAR HGB CONC 35.1 % (32.0-36.0); MONO % 9.9 % (0.0-8.0); NEUT % 47.3 % (16.0-70.0); PLATELET COUNT 154 TH/MM3 (150-450); RED BLOOD COUNT 4.54 MIL/MM3 (4.50-5.90); RED CELL DISTRIBUTION WIDTH 12.9 % (11.6-17.2); WHITE BLOOD COUNT 4.7 TH/MM3 (4.0-11.0)
[2017-07-23 08:45] LABS: ANION GAP 7 MEQ/L (5-15); AST (GOT) 58 U/L (15-37); BICARBONATE 28.5 MEQ/L (21.0-32.0); BLOOD UREA NITROGEN 8 MG/DL (7-18); CHLORIDE 101 MEQ/L (98-107); GLOMERULAR FILTRATION RATE 119 ML/MIN (>89); MAGNESIUM 1.5 MG/DL (1.5-2.5); POTASSIUM 3.9 MEQ/L (3.5-5.1); SODIUM (NA) 136 MEQ/L (136-145)
[2017-07-23] MEDS: DOCUSATE SODIUM 50 MG/SENNA 8.6 MG TAB PO SCH ×2 (08:51→21:00)
[2017-07-23] MEDS: LEVOFLOXACIN 750 MG TAB PO SCH (08:51)
[2017-07-23] MEDS: ASPIRIN EC 325 MG TABEC PO SCH (08:52)
[2017-07-23] MEDS: HEPARIN SODIUM - SQ 10,000 UNITS/ML VIAL SQ SCH ×2 (08:52→21:11)
[2017-07-23] MEDS: LISINOPRIL 10 MG TAB PO SCH (08:52)
[2017-07-23] MEDS: POLYETHYLENE GLYCOL 17 GM PKG PO SCH (08:52)
[2017-07-23] MEDS: FAMOTIDINE 20 MG/2 ML VIAL IV PUSH SCH (08:52)
[2017-07-23] MEDS: INSULIN DETEMIR 100 UNITS/ML VIAL SQ SCH (08:53)
[2017-07-23] MEDS: POVIDONE IODINE 10% OINT 30 GM TUBE TOPICAL SCH (08:53)
[2017-07-23 08:54] LABS: ALKALINE PHOSPHATASE 64 U/L (45-117); ALT (GPT) 64 U/L (12-78); FREE T4 1.36 NG/DL (0.76-1.46); TOTAL BILIRUBIN ADULT 0.5 MG/DL (0.2-1.0)
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
[2017-07-23] MEDS ORDERED: HYDR-3516 PO (09:31)
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
[2017-07-23] MEDS: ACETAMINOPHEN/HYDROcodone 325 MG/5 MG TAB PO PRN (12:13)
[2017-07-23 13:13] LABS: HEMOGLOBIN A1b 2.3 %; HEMOGLOBIN LA1C 2.5 %; HEMOGLOBIN P3 4.6 %
[2017-07-23] MEDS ORDERED: ENALAPRILAT 1.25 MG/ML VIAL IV PUSH PRN (13:30)
[2017-07-23] MEDS: ATORVASTATIN 20 MG TAB PO SCH (21:11)
[2017-07-24] VITALS (9 sets, daily range): BP systolic 118–177; BP diastolic 70–99; PULSE 51–75; RESP 18–20; TEMP 97.4–98.5; O2SAT 95–98
[2017-07-24] MEDS: CHLORHEXIDINE GLUCONATE 2 % 1 PACK (2 CLOTHS) TOP SCH (00:32)
[2017-07-24] MEDS: IBUPROFEN 800 MG TAB PO PRN (00:34)
[2017-07-24] MEDS: GABAPENTIN 300 MG CAP PO SCH ×3 (06:33→21:20)
[2017-07-24] MEDS: INSULIN ASPART SUPPLEMENTAL SCALE SQ SCH ×4 (08:00→21:00)
[2017-07-24] MEDS: DOCUSATE SODIUM 50 MG/SENNA 8.6 MG TAB PO SCH ×2 (09:00→21:00)
[2017-07-24] MEDS: POLYETHYLENE GLYCOL 17 GM PKG PO SCH (09:00)
[2017-07-24] MEDS: INSULIN DETEMIR 100 UNITS/ML VIAL SQ SCH (09:00)
[2017-07-24] MEDS: POVIDONE IODINE 10% OINT 30 GM TUBE TOPICAL SCH (09:00)
[2017-07-24] MEDS: ACETAMINOPHEN/HYDROcodone 325 MG/10 MG TAB PO PRN ×4 (09:12→21:20)
[2017-07-24] MEDS: LEVOFLOXACIN 750 MG TAB PO SCH (09:12)
[2017-07-24] MEDS: ASPIRIN EC 325 MG TABEC PO SCH (09:12)
[2017-07-24] MEDS: LISINOPRIL 10 MG TAB PO SCH (09:12)
[2017-07-24] MEDS: HEPARIN SODIUM - SQ 10,000 UNITS/ML VIAL SQ SCH ×2 (09:13→21:21)
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
[2017-07-24] MEDS: ATORVASTATIN 20 MG TAB PO SCH (21:20)
[2017-07-25 00:42] VITALS: BP 136/78; PULSE 55; RESP 18; TEMP 97.6; O2SAT 97
[2017-07-25] MEDS: CHLORHEXIDINE GLUCONATE 2 % 1 PACK (2 CLOTHS) TOP SCH (04:00)
[2017-07-25 05:00] VITALS: BP 107/71; PULSE 68; RESP 18; TEMP 97.8; O2SAT 99
[2017-07-25] MEDS: GABAPENTIN 300 MG CAP PO SCH ×2 (05:39→12:48)
[2017-07-25] MEDS: INSULIN ASPART SUPPLEMENTAL SCALE SQ SCH ×2 (08:00→12:00)
[2017-07-25] MEDS: POLYETHYLENE GLYCOL 17 GM PKG PO SCH (08:41)
[2017-07-25] MEDS: ASPIRIN EC 325 MG TABEC PO SCH (08:41)
[2017-07-25] MEDS: HEPARIN SODIUM - SQ 10,000 UNITS/ML VIAL SQ SCH (08:41)
[2017-07-25] MEDS: POVIDONE IODINE 10% OINT 30 GM TUBE TOPICAL SCH (08:41)
[2017-07-25] MEDS: LEVOFLOXACIN 750 MG TAB PO SCH (08:41)
[2017-07-25] MEDS: LISINOPRIL 10 MG TAB PO SCH (08:41)
[2017-07-25] MEDS: INSULIN DETEMIR 100 UNITS/ML VIAL SQ SCH (08:41)
[2017-07-25] MEDS: DOCUSATE SODIUM 50 MG/SENNA 8.6 MG TAB PO SCH (08:41)
[2017-07-25] MEDS: ACETAMINOPHEN/HYDROcodone 325 MG/10 MG TAB PO PRN ×2 (08:47→12:48)
[2017-07-25 08:48] VITALS: BP 134/68; PULSE 55; RESP 18; TEMP 98.5; O2SAT 97
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
[2017-07-25] MEDS ORDERED: LEVA750T9 PO (10:47)
[2017-07-25 12:28] VITALS: BP 132/79; PULSE 78; RESP 20; TEMP 97.8; O2SAT 96
[2017-07-25 14:17] VITALS: PULSE 56
== END 2017-07-25 15:53 | DRG 62 ==
LOC: NEPC 11:50 → NEDH 13:55 → N03B 16:39 → N05B 07-16 12:25
PROVIDERS: ADMIT Internal Medicine; ATTEND Internal Medicine
DX: I63.9 Cerebral infarction, unspecified (principal); I69.354 Hemiplegia and hemiparesis following cerebral infarction affecting left non-dominant side; R78.81 Bacteremia; I80.8 Phlebitis and thrombophlebitis of other sites; I10 Essential (primary) hypertension; N39.0 Urinary tract infection, site not specified; E11.9 Type 2 diabetes mellitus without complications; B96.89 Other specified bacterial agents as the cause of diseases classified elsewhere; R00.1 Bradycardia, unspecified; R47.01 Aphasia; R29.810 Facial weakness; F32.9 Major depressive disorder, single episode, unspecified; F14.10 Cocaine abuse, uncomplicated; G89.29 Other chronic pain; M54.5 Low back pain; F17.210 Nicotine dependence, cigarettes, uncomplicated; J40 Bronchitis, not specified as acute or chronic; L98.9 Disorder of the skin and subcutaneous tissue, unspecified; K59.00 Constipation, unspecified; G43.909 Migraine, unspecified, not intractable, without status migrainosus; Z79.4 Long term (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 of insulin
CPT/HCPCS: 70450; 70496; 70498; 71010; 71020; 76937; 76999; 80053; 80061; 80076; 80307; 81001; 82435; 82550; 82565; 82607; 82947; 82948; 83036; 83690; 83735; 84100; 84132; 84295; 84439; 84443; 84484; 84520; 85025; 85384; 85610; 85652; 85730; 86850; 86900; 86901; 87040; 87070; 87077; 87086; 87186; 87205; 87641; 93005; 93306; 95819; 96365; 96375; J1644; J1815; J2543; J2997; J3370; J3411; J7030; J7040; Q9967

== ENCOUNTER 2018-01-29 13:49 | Emergency (ER) | payer OTHER ==
[~2018-01-29] VITALS: Ht 190.5 cm; Wt 86.0 kg
[~2018-01-29 13:49] MED LIST changes: +ASPI-183 PO; -ASPI325T PO; -BENZ100 PO; +INSU1INJ5 SQ; -PRED20 PO
[2018-01-29 14:21] VITALS: BP 113/64; PULSE 62; RESP 17; TEMP 97.6; O2SAT 98
[2018-01-29] MEDS ORDERED: traMADol HCL 50 MG TAB PO ONE (15:45)
[2018-01-29] MEDS ORDERED: ACETAMINOPHEN/HYDROcodone 325 MG/5 MG TAB PO ONE (15:45)
[2018-01-29] MEDS ORDERED: NORC5TAB PO (16:10)
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
== END 2018-01-29 16:30 | disposition home or self-care (01) ==
LOC: NEPD 13:49
DX: E11.40 Type 2 diabetes mellitus with diabetic neuropathy, unspecified (principal); E78.00 Pure hypercholesterolemia, unspecified; F32.9 Major depressive disorder, single episode, unspecified; I48.91 Unspecified atrial fibrillation; I10 Essential (primary) hypertension; Z79.01 Long term (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 of anticoagulants; Z86.73 Personal history of transient ischemic attack (TIA), and cerebral infarction without residual deficits; Z72.0 Tobacco use; Z79.82 Long term (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 of aspirin; Z79.84 Long term (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 of oral hypoglycemic drugs; Z79.4 Long term (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 of insulin
CPT/HCPCS: 99283

== ENCOUNTER 2018-04-08 16:22 | Inpatient (IN) ==
[2018-04-08] MEDS ORDERED: Enoxaparin Inj 40 MG/0.4 ML Syringe ONE (22:34)
[2018-04-08] MEDS ORDERED: Insulin Detemir Inj 1,000 UNIT/10 ML Vial SQ ONE (22:47)
[2018-04-09] MEDS ORDERED: Acetaminophen 500 MG Tablet PO PRN
[2018-04-09] MEDS ORDERED: Dextrose 50% in Water 50 ML Vial IV.PUSH PRN (00:08)
[2018-04-09 05:36] LABS: Troponin I 0.02 ng/mL (0.02-0.05)
[2018-04-09 05:48] LABS: Creatine Kinase MB 3.5 ng/mL (0.5-3.6)
[2018-04-09] MEDS ORDERED: Aspirin 325 MG Tablet PO SCH (09:00)
[2018-04-09] MEDS: Lisinopril 20 MG Tablet PO SCH (09:12)
[2018-04-09] MEDS: Gabapentin 400 MG Capsule PO SCH ×3 (09:14→18:13)
[2018-04-09] MEDS: Insulin NovoLOG Aspart Correctional Sugar Inj SQ SCH ×4 (09:15→22:12)
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
[2018-04-09] MEDS: predniSONE 20 MG Tablet PO SCH (13:54)
[2018-04-09 15:40] LABS: Amphetamine Screen,Urine Neg (Neg); Barbiturate Screen,Urine Neg (Neg); Cannabinoid Screen,Urine Pos (Neg); Cocaine Screen,Urine Pos (Neg); Opiate Screen,Urine Pos (Neg)
[2018-04-09] MEDS: Insulin Detemir Inj 1,000 UNIT/10 ML Vial SQ SCH (21:59)
[2018-04-09] MEDS: Enoxaparin Inj 40 MG/0.4 ML Syringe SQ SCH (22:20)
[2018-04-10 06:50] LABS: Baso % (Auto) 0.8 % (0.0-2.0); Eos # (Auto) 0.1 th/mm3 (0.0-0.4); Eos % (Auto) 1.4 % (0.0-4.0); Hematocrit 46.2 % (39.0-51.0); Lymph % (Auto) 37.3 % (9.0-44.0); Mean Corpuscular HGB Conc 34.7 % (32.0-36.0); Mean Corpuscular Hemoglobin 32.7 pg (27.0-34.0); Mean Corpuscular Volume 94.3 fL (80.0-100.0); Mean Platelet Volume 9.9 fL (7.0-11.0); Mono # (Auto) 0.5 th/mm3 (0.0-0.9); Mono % (Auto) 8.7 % (0.0-8.0); Neut # (Auto) 2.7 th/mm3 (1.8-7.7); Neut % (Auto) 51.8 % (16.0-70.0); Platelet Count 163 th/mm3 (150-450); Red Cell Distribution Width 12.2 % (11.6-17.2); White Blood Count 5.3 th/mm3 (4.0-11.0)
[2018-04-10 07:42] LABS: Anion Gap 9 meq/L (5-15); Blood Urea Nitrogen 13 mg/dL (7-18); Carbon Dioxide 25.5 meq/L (21.0-32.0); Chloride 104 meq/L (98-107); Chol/HDL Ratio 4.91 Ratio; Cholesterol 183 mg/dL (120-200); Glomerular Filtration Rate Greater Than 89 mL/min (>89); Glucose,Random 126 mg/dL (74-106); HDL Cholesterol 37.2 mg/dL (40.0-60.0); LDL Cholesterol,Calculated 125 mg/dL (0-99); Potassium 3.7 meq/L (3.5-5.1); Sodium 138 meq/L (136-145); Triglycerides 102 mg/dL (42-150)
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
[2018-04-10] MEDS: predniSONE 20 MG Tablet PO SCH (09:28)
[2018-04-10] MEDS: Lisinopril 20 MG Tablet PO SCH (09:28)
[2018-04-10] MEDS: Gabapentin 400 MG Capsule PO SCH ×3 (09:30→18:13)
[2018-04-10] MEDS: Insulin NovoLOG Aspart Correctional Sugar Inj SQ SCH ×4 (09:34→22:29)
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
[2018-04-10] MEDS ORDERED: Ketorolac 10 MG Tablet PO ONE (17:02)
[2018-04-10] MEDS: Enoxaparin Inj 40 MG/0.4 ML Syringe SQ SCH (22:28)
[2018-04-10] MEDS: Insulin Detemir Inj 1,000 UNIT/10 ML Vial SQ SCH (22:29)
[2018-04-10 22:42] LABS: Hemoglobin A1c 5.9 % (4.3-6.0)
[2018-04-11] MEDS: Lisinopril 20 MG Tablet PO SCH (10:03)
[2018-04-11] MEDS: Ketorolac 10 MG Tablet PO SCH ×3 (10:05→21:35)
[2018-04-11] MEDS: Gabapentin 400 MG Capsule PO SCH ×3 (10:07→17:41)
[2018-04-11] MEDS: Insulin NovoLOG Aspart Correctional Sugar Inj SQ SCH ×4 (10:08→21:49)
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
[2018-04-11] MEDS: Insulin Detemir Inj 1,000 UNIT/10 ML Vial SQ SCH (21:37)
[2018-04-11] MEDS: Enoxaparin Inj 40 MG/0.4 ML Syringe SQ SCH (21:38)
[2018-04-12] MEDS: Ketorolac 10 MG Tablet PO SCH ×4 (01:07→21:01)
[2018-04-12] MEDS: Insulin NovoLOG Aspart Correctional Sugar Inj SQ SCH ×4 (07:55→21:03)
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
[2018-04-12] MEDS: Lisinopril 20 MG Tablet PO SCH (09:59)
[2018-04-12] MEDS: Gabapentin 400 MG Capsule PO SCH ×3 (10:00→18:26)
[2018-04-12] MEDS: Insulin Detemir Inj 1,000 UNIT/10 ML Vial SQ SCH (21:03)
[2018-04-12] MEDS: Enoxaparin Inj 40 MG/0.4 ML Syringe SQ SCH (21:04)
[2018-04-13] MEDS: Ketorolac 10 MG Tablet PO SCH ×4 (03:07→21:21)
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
[2018-04-13] MEDS: Lisinopril 20 MG Tablet PO SCH (08:53)
[2018-04-13] MEDS: Gabapentin 400 MG Capsule PO SCH ×3 (08:53→18:25)
[2018-04-13] MEDS ORDERED: Artificial Tears Opth Drops 15 ML Bottle EACH EYE PRN (12:00)
[2018-04-13] MEDS: Insulin NovoLOG Aspart Correctional Sugar Inj SQ SCH ×4 (13:45→21:22)
[2018-04-13 16:35] LABS: Factor V Leiden Mutation Negative (Negative); Protein C Functional 103 % (70 - 150)
[2018-04-13] MEDS: Enoxaparin Inj 40 MG/0.4 ML Syringe SQ SCH (21:22)
[2018-04-13] MEDS: Insulin Detemir Inj 1,000 UNIT/10 ML Vial SQ SCH (21:23)
[2018-04-14] MEDS: Ketorolac 10 MG Tablet PO SCH ×3 (01:33→14:00)
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
[2018-04-14] MEDS: Lisinopril 20 MG Tablet PO SCH (09:09)
[2018-04-14] MEDS: Gabapentin 400 MG Capsule PO SCH ×3 (09:09→19:07)
[2018-04-14] MEDS: Insulin NovoLOG Aspart Correctional Sugar Inj SQ SCH ×4 (09:19→21:09)
[2018-04-14] MEDS ORDERED: Acetaminophen 500 MG Tablet PO PRN (15:10)
[2018-04-14] MEDS ORDERED: Dextrose 50% in Water 50 ML Vial IV.PUSH PRN (15:46)
[2018-04-14] MEDS: Insulin Detemir Inj 1,000 UNIT/10 ML Vial SQ SCH (21:08)
[2018-04-14] MEDS: Enoxaparin Inj 40 MG/0.4 ML Syringe SQ SCH (21:10)
[2018-04-15] MEDS ORDERED: predniSONE 20 MG Tablet PO SCH (09:00)
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
[2018-04-15] MEDS: Gabapentin 400 MG Capsule PO SCH ×3 (10:10→19:42)
[2018-04-15] MEDS: Lisinopril 20 MG Tablet PO SCH (10:10)
[2018-04-15] MEDS: Insulin NovoLOG Aspart Correctional Sugar Inj SQ SCH ×4 (10:12→21:23)
[2018-04-15] MEDS: Insulin Detemir Inj 1,000 UNIT/10 ML Vial SQ SCH (21:16)
[2018-04-15] MEDS: Enoxaparin Inj 40 MG/0.4 ML Syringe SQ SCH (21:16)
[2018-04-16] MEDS: Lisinopril 20 MG Tablet PO SCH (08:28)
[2018-04-16] MEDS: Gabapentin 400 MG Capsule PO SCH ×3 (08:28→20:01)
[2018-04-16] MEDS: Insulin NovoLOG Aspart Correctional Sugar Inj SQ SCH ×4 (08:30→21:03)
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
[2018-04-16] MEDS ORDERED: Phenol 1.4% 180 ML Spray Bottle OROPHARYNG PRN (08:51)
[2018-04-16] MEDS: Artificial Tears Opth Drops 15 ML Bottle EACH EYE PRN (13:07)
[2018-04-16 13:28] LABS: Baso # (Auto) 0.1 th/mm3 (0.0-0.2); Eos # (Auto) 0.1 th/mm3 (0.0-0.4); Eos % (Auto) 2.8 % (0.0-4.0); Hematocrit 45.5 % (39.0-51.0); Hemoglobin 15.7 gm/dL (13.0-17.0); Lymph # (Auto) 1.6 th/mm3 (1.0-4.8); Lymph % (Auto) 31.3 % (9.0-44.0); Mean Corpuscular HGB Conc 34.6 % (32.0-36.0); Mean Corpuscular Hemoglobin 32.9 pg (27.0-34.0); Mean Corpuscular Volume 95.1 fL (80.0-100.0); Mono # (Auto) 0.6 th/mm3 (0.0-0.9); Mono % (Auto) 10.9 % (0.0-8.0); Neut # (Auto) 2.7 th/mm3 (1.8-7.7); Platelet Count 150 th/mm3 (150-450); Red Blood Count 4.78 mil/mm3 (4.50-5.90); Red Cell Distribution Width 12.7 % (11.6-17.2); White Blood Count 5.1 th/mm3 (4.0-11.0)
[2018-04-16 13:55] LABS: Anion Gap 6 meq/L (5-15); Blood Urea Nitrogen 12 mg/dL (7-18); Carbon Dioxide 29.3 meq/L (21.0-32.0); Chloride 104 meq/L (98-107); Glomerular Filtration Rate Greater Than 89 mL/min (>89); Glucose,Random 148 mg/dL (74-106); Potassium 4.3 meq/L (3.5-5.1); Sodium 139 meq/L (136-145)
[2018-04-16] MEDS: Enoxaparin Inj 40 MG/0.4 ML Syringe SQ SCH (21:02)
[2018-04-16] MEDS: Insulin Detemir Inj 1,000 UNIT/10 ML Vial SQ SCH (21:03)
[2018-04-17] MEDS: Gabapentin 400 MG Capsule PO SCH ×3 (08:18→17:45)
[2018-04-17] MEDS: Lisinopril 20 MG Tablet PO SCH (08:19)
[2018-04-17] MEDS: Artificial Tears Opth Drops 15 ML Bottle EACH EYE PRN (08:20)
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
[2018-04-17] MEDS: Insulin NovoLOG Aspart Correctional Sugar Inj SQ SCH ×3 (09:42→17:45)
[2018-04-17 15:45] LABS: Dil Russell Viper Venom Time M ND; Factor VIII (8) Activity 124 % normal (50-180); Lupus Anticoagulant Not detected; Lupus Anticoagulant PTT Screen 33 seconds (< OR = 40)
[2018-04-17] MEDS: Insulin Detemir Inj 1,000 UNIT/10 ML Vial SQ SCH (23:10)
[2018-04-17] MEDS: Enoxaparin Inj 40 MG/0.4 ML Syringe SQ SCH (23:16)
[2018-04-18] MEDS: Insulin NovoLOG Aspart Correctional Sugar Inj SQ SCH ×5 (00:41→21:53)
[2018-04-18] MEDS: Gabapentin 400 MG Capsule PO SCH ×3 (08:17→17:10)
[2018-04-18] MEDS: Lisinopril 20 MG Tablet PO SCH (08:18)
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
[2018-04-18] MEDS: Insulin Detemir Inj 1,000 UNIT/10 ML Vial SQ SCH (21:53)
[2018-04-18] MEDS: Enoxaparin Inj 40 MG/0.4 ML Syringe SQ SCH (21:53)
[2018-04-18] MEDS: Artificial Tears Opth Drops 15 ML Bottle EACH EYE PRN (23:44)
[2018-04-19] MEDS: Gabapentin 400 MG Capsule PO SCH ×3 (09:30→17:22)
[2018-04-19] MEDS: Lisinopril 20 MG Tablet PO SCH (09:30)
[2018-04-19] MEDS: Insulin NovoLOG Aspart Correctional Sugar Inj SQ SCH ×4 (09:32→20:58)
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
[2018-04-19] MEDS: Insulin Detemir Inj 1,000 UNIT/10 ML Vial SQ SCH (20:59)
[2018-04-19] MEDS: Enoxaparin Inj 40 MG/0.4 ML Syringe SQ SCH (21:00)
[2018-04-20] MEDS: Insulin NovoLOG Aspart Correctional Sugar Inj SQ SCH ×4 (08:18→21:25)
[2018-04-20] MEDS: Lisinopril 20 MG Tablet PO SCH (08:18)
[2018-04-20] MEDS: Gabapentin 400 MG Capsule PO SCH ×3 (08:18→17:49)
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
[2018-04-20] MEDS: Enoxaparin Inj 40 MG/0.4 ML Syringe SQ SCH (21:24)
[2018-04-20] MEDS: Insulin Detemir Inj 1,000 UNIT/10 ML Vial SQ SCH (21:26)
[2018-04-21] MEDS: Gabapentin 400 MG Capsule PO SCH ×3 (08:38→18:52)
[2018-04-21] MEDS: Lisinopril 20 MG Tablet PO SCH (08:39)
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
[2018-04-21] MEDS: Insulin NovoLOG Aspart Correctional Sugar Inj SQ SCH ×3 (08:44→22:23)
[2018-04-21] MEDS: Enoxaparin Inj 40 MG/0.4 ML Syringe SQ SCH (22:17)
[2018-04-21] MEDS: Insulin Detemir Inj 1,000 UNIT/10 ML Vial SQ SCH (22:22)
[2018-04-21] MEDS: Artificial Tears Opth Drops 15 ML Bottle EACH EYE PRN (22:25)
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
[2018-04-22] MEDS: Lisinopril 20 MG Tablet PO SCH (09:53)
[2018-04-22] MEDS: Gabapentin 400 MG Capsule PO SCH ×3 (09:53→17:56)
[2018-04-22] MEDS: Insulin NovoLOG Aspart Correctional Sugar Inj SQ SCH ×5 (09:54→21:22)
[2018-04-22] MEDS: Enoxaparin Inj 40 MG/0.4 ML Syringe SQ SCH (21:20)
[2018-04-22] MEDS: Insulin Detemir Inj 1,000 UNIT/10 ML Vial SQ SCH (21:23)
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
[2018-04-23] MEDS: Lisinopril 20 MG Tablet PO SCH (09:58)
[2018-04-23] MEDS: Gabapentin 400 MG Capsule PO SCH ×3 (09:58→18:09)
[2018-04-23] MEDS: Insulin NovoLOG Aspart Correctional Sugar Inj SQ SCH ×4 (09:59→21:45)
[2018-04-23] MEDS: Enoxaparin Inj 40 MG/0.4 ML Syringe SQ SCH (21:45)
[2018-04-23] MEDS: Insulin Detemir Inj 1,000 UNIT/10 ML Vial SQ SCH (21:46)
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
[2018-04-24] MEDS: Gabapentin 400 MG Capsule PO SCH ×3 (10:08→19:44)
[2018-04-24] MEDS: Lisinopril 20 MG Tablet PO SCH (10:08)
[2018-04-24] MEDS: Insulin NovoLOG Aspart Correctional Sugar Inj SQ SCH ×4 (10:08→21:50)
[2018-04-24] MEDS: Insulin Detemir Inj 1,000 UNIT/10 ML Vial SQ SCH (21:51)
[2018-04-24] MEDS: Enoxaparin Inj 40 MG/0.4 ML Syringe SQ SCH (21:52)
[2018-04-25] MEDS: Gabapentin 400 MG Capsule PO SCH ×3 (08:21→17:41)
[2018-04-25] MEDS: Lisinopril 20 MG Tablet PO SCH (08:22)
[2018-04-25] MEDS: Insulin NovoLOG Aspart Correctional Sugar Inj SQ SCH ×4 (08:29→20:38)
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
[2018-04-25] MEDS: Insulin Detemir Inj 1,000 UNIT/10 ML Vial SQ SCH (20:39)
[2018-04-25] MEDS: Enoxaparin Inj 40 MG/0.4 ML Syringe SQ SCH (22:00)
[2018-04-26] MEDS: Insulin NovoLOG Aspart Correctional Sugar Inj SQ SCH ×4 (08:26→21:33)
[2018-04-26] MEDS: Lisinopril 20 MG Tablet PO SCH (08:26)
[2018-04-26] MEDS: Gabapentin 400 MG Capsule PO SCH ×3 (08:26→17:55)
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
[2018-04-26] MEDS: Enoxaparin Inj 40 MG/0.4 ML Syringe SQ SCH (21:30)
[2018-04-26] MEDS: Insulin Detemir Inj 1,000 UNIT/10 ML Vial SQ SCH (21:33)
[2018-04-27] MEDS: Lisinopril 20 MG Tablet PO SCH (09:43)
[2018-04-27] MEDS: Gabapentin 400 MG Capsule PO SCH ×3 (09:43→18:01)
[2018-04-27] MEDS: Insulin NovoLOG Aspart Correctional Sugar Inj SQ SCH ×4 (09:44→21:47)
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
[2018-04-27] MEDS: Enoxaparin Inj 40 MG/0.4 ML Syringe SQ SCH (21:46)
[2018-04-27] MEDS: Insulin Detemir Inj 1,000 UNIT/10 ML Vial SQ SCH (21:48)
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
[2018-04-28] MEDS: Gabapentin 400 MG Capsule PO SCH ×3 (09:20→18:10)
[2018-04-28] MEDS: Lisinopril 20 MG Tablet PO SCH (09:20)
[2018-04-28] MEDS: Insulin NovoLOG Aspart Correctional Sugar Inj SQ SCH ×4 (09:20→21:35)
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
[2018-04-28] MEDS: Insulin Detemir Inj 1,000 UNIT/10 ML Vial SQ SCH (21:34)
[2018-04-28] MEDS: Enoxaparin Inj 40 MG/0.4 ML Syringe SQ SCH (21:35)
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
[2018-04-29] MEDS: Gabapentin 400 MG Capsule PO SCH ×3 (10:22→17:00)
[2018-04-29] MEDS: Lisinopril 20 MG Tablet PO SCH (10:22)
[2018-04-29] MEDS: Insulin NovoLOG Aspart Correctional Sugar Inj SQ SCH ×4 (10:22→20:44)
[2018-04-29] MEDS: Insulin Detemir Inj 1,000 UNIT/10 ML Vial SQ SCH (20:46)
[2018-04-29] MEDS: Enoxaparin Inj 40 MG/0.4 ML Syringe SQ SCH (23:07)
[2018-04-30] MEDS: Enoxaparin Inj 40 MG/0.4 ML Syringe SQ SCH (05:50)
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
[2018-04-30] MEDS: Lisinopril 20 MG Tablet PO SCH (09:09)
[2018-04-30] MEDS: Gabapentin 400 MG Capsule PO SCH ×3 (09:09→17:15)
[2018-04-30] MEDS: Insulin NovoLOG Aspart Correctional Sugar Inj SQ SCH ×4 (09:10→20:43)
[2018-04-30] MEDS: Insulin Detemir Inj 1,000 UNIT/10 ML Vial SQ SCH (20:44)
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
[2018-05-01] MEDS: Lisinopril 20 MG Tablet PO SCH (09:04)
[2018-05-01] MEDS: Gabapentin 400 MG Capsule PO SCH ×3 (09:05→18:58)
[2018-05-01] MEDS: Insulin NovoLOG Aspart Correctional Sugar Inj SQ SCH ×4 (09:08→21:20)
[2018-05-01] MEDS: Insulin Detemir Inj 1,000 UNIT/10 ML Vial SQ SCH (21:19)
[2018-05-01] MEDS: Enoxaparin Inj 40 MG/0.4 ML Syringe SQ SCH (21:22)
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
[2018-05-02] MEDS: Lisinopril 20 MG Tablet PO SCH (10:17)
[2018-05-02] MEDS: Gabapentin 400 MG Capsule PO SCH ×3 (10:17→18:30)
[2018-05-02] MEDS: Insulin NovoLOG Aspart Correctional Sugar Inj SQ SCH ×4 (10:18→21:54)
[2018-05-02] MEDS: Insulin Detemir Inj 1,000 UNIT/10 ML Vial SQ SCH (21:53)
[2018-05-02] MEDS: Enoxaparin Inj 40 MG/0.4 ML Syringe SQ SCH (21:53)
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
[2018-05-03] MEDS: Insulin NovoLOG Aspart Correctional Sugar Inj SQ SCH ×4 (09:42→20:49)
[2018-05-03] MEDS: Lisinopril 20 MG Tablet PO SCH (09:43)
[2018-05-03] MEDS: Gabapentin 400 MG Capsule PO SCH ×3 (09:43→17:12)
[2018-05-03] MEDS: Insulin Detemir Inj 1,000 UNIT/10 ML Vial SQ SCH (20:48)
[2018-05-04] MEDS: Enoxaparin Inj 40 MG/0.4 ML Syringe SQ SCH (00:39)
--- NOTE | 2018-05-04 08:06 | P.DCO ---
- Physical Therapy Order: Evaluate and treat, Improve ambulation, Strength and gait training - Certification I have seen patient Arron Acosta on 05/04/18. My clinical findings support the need for the requested home health care services because: Deconditioned with increased weakness I certify that my clinical findings support that this patient is homebound because: Unsteady gait/balance
[2018-05-04] MEDS: Lisinopril 20 MG Tablet PO SCH (09:26)
--- NOTE | 2018-05-04 09:29 | P.DS ---
Date of admission: 04/10/18 13:47 Primary care physician: Solo Aguilar MD, R3 Attending physician on discharge: Jose Penny Anticipated date of discharge: 05/04/18 Brief History from admission: Per H&P admission note from 04/08: 62-year-old male with history of prior stroke in July 2017, diabetes, hypertension presents with a one-day history of left- sided chest pain radiating into the left arm as well as worsened left-sided facial and body weakness. Symptoms began around 1999 yesterday evening. No associated shortness of breath, slurred speech, or swallowing trouble. He does note his right eye has been a little blurrier for the last week. DS: Diagnosis - Discharge Diagnosis (1) CVA (cerebral vascular accident) Status: Acute Diagnosis: Principal (2) Diabetes type 2, controlled Status: Chronic Diagnosis: Secondary (3) HTN (hypertension) Status: Chronic Diagnosis: Secondary (4) Chronic low back pain Status: Chronic Diagnosis: Secondary (5) Chronic pain syndrome Status: Chronic Diagnosis: Secondary (6) Nutrition, metabolism, and development symptoms Status: Acute Diagnosis: Secondary DS: Medications - Discharge Medications Prescriptions: albuterol sulfate 0.63 mg INHALATION Q4H PRN #10 ml PRN Reason: Shortness Of Breath aspirin 325 mg PO DAILY #30 tab atorvastatin 40 mg PO HS #30 tab clopidogrel [Plavix] 75 mg PO DAILY #30 tab gabapentin 800 mg PO TID #60 tab hydrocodone-acetaminophen 1 tab PO Q6H PRN #18 tab PRN Reason: pain insulin detemir U-100 [Levemir U-100 Insulin] 5 unit SUB-Q HS #10 ml lisinopril 20 mg PO DAILY #30 tab metformin [Glucophage] 500 mg PO TIDAC #60 tab sitagliptin 25 mg PO DAILY #30 tab walker #1 unit wheelchair #1 unit DS: Summary Hospital Course: 62-year-old male with history significant for CVA in 07/2017 who presented for chest pain and neurologic symptoms on 04/10. He was found to have a stroke clinically though imaging studies did not show any evidence of this. He was on aspirin at time of admission and is now on aspirin and Plavix. His neurologic deficits included significant persistent left-sided weakness in the upper and lower extremities as well as a left-sided facial droop. Patient's baseline was fully independent and he lived in a rooming home with common bathroom down the [address] [place] he lives. Neurology and cardiology were both consulted early during this hospitalization. Given unclear etiology of recurrent CVA, they recommend placement of a 30-day Holter as outpatient. Patient was going to have this placed in the hospital but he refused to be NPO for the procedure. Patient did have nonspecific chest pain however it was reproducible on exam. Cardiac enzymes were negative. EKGs were unremarkable. He did have a brief trial with steroids but given diabetes this was switched to Toradol which he tolerated well. Chest pain resolved prior to admission. Patient worked well with physical therapy and medically cleared for discharge. Patient is discharged home with his niece who has moved to the [facility] from [place]. Patient will continue physical therapy as an outpatient and was instructed to follow-up with his new PCP Dr. Lazar at the [address] [place] [address] as well as cardiology and neurology. - Time Spent with Patient Total time spent providing and/or coordinating discharge services: Exam Vital signs: Vital Signs 05/03/18 12:00 05/03/18 16:00 05/03/18 20:00 Temperature 97.1 F L 97.8 F 97.5 F L Pulse Rate 74 76 68 Respiratory Rate 18 18 18 Blood Pressure 123/67 129/68 135/77 Pulse Oximetry 95 96 98 05/03/18 23:57 05/04/18 04:00 Temperature 97.5 F L 97.4 F L Pulse Rate 77 62 Respiratory Rate 18 18 Blood Pressure 132/77 116/69 Pulse Oximetry 97 97 Intake & Output 05/03/18 05/04/18 05/04/18 18:59 06:59 18:59 Intake Total 720 / 720 960 / 960 Output Total 975 / 975 1050 / 1050 Balance -255 / -255 -90 / -90 Weight 100.3 kg Intake: Oral 720 / 720 960 / 960 Output: Urine 975 / 975 1050 / 1050 Other: Date of Last Bowel Movement 04/28/18 05/03/18 # Bowel Movements 1 Narrative: GENERAL: No apparent distress. Lying comfortably in bed. SKIN: Warm and dry. No rashes or ecchymoses. EYES: Facial droop chronic and stable on left. No injection or drainage. NECK: Supple with no masses, full range of motion CARDIOVASCULAR: Regular rate and rhythm without murmur. RESPIRATORY: No accessory muscle use. Clear to auscultation without crackles or wheezes. GASTROINTESTINAL: Abdomen soft, non-tender, nondistended MUSCULOSKELETAL: Extremities without clubbing, cyanosis, or edema. No obvious deformities. NEUROLOGICAL: Awake and alert. Motor function grossly within normal limits while in bed. Muscle strength in right extremities normal, strength unable to be graded with left sided strength as patient initially fires muscles but then with weakened strength. Normal speech. PSYCHIATRIC: Appropriate mood and affect; insight and judgment normal. Results Procedures completed during hospitalization: N/A Labs on day of discharge: Labs from last 24 hours 05/04/18 05/03/18 05/03/18 08:00 20:04 16:35 POC Glucose 164 H 169 H 153 H 05/03/18 11:41 POC Glucose 177 H Discharge Plan - Discharge Disposition Patient Disposition: /Home Health Service - Discharge Condition Condition: Stable - Discharge Order Discharge Orders: Discharge Order (Routine); Ordered 05/04/18 Ordered By: [facility] Cardiology Clear for Discharge (Routine); Ordered 04/10/18 Ordered By: Donovan Gonzalez - Discharge Details Anticipated Discharge Date: 05/04/18 - Physicians Team Primary Care Provider: Solo Aguilar Attending Provider: Jose Penny Other Providers: Pawel Gonzalez MD ; Jalen Lara MD ; Donovan Gonzalez MD ; Jean Claude White MD - Rxs /Orders / Referrals /Forms Prescriptions: New atorvastatin 40 mg Tablet 40 mg PO HS Qty: 30 RF: 2 clopidogrel [Plavix] 75 mg Tablet 75 mg PO DAILY Qty: 30 RF: 1 insulin detemir U-100 [Levemir U-100 Insulin] 100 unit/mL Solution 5 unit Sub-Q HS Qty: 10 RF: 1 lisinopril 20 mg Tablet 20 mg PO DAILY Qty: 30 RF: 2 metformin [Glucophage] 500 mg Tablet 500 mg PO TIDAC Qty: 60 RF: 1 Continue albuterol sulfate 0.63 mg/3 mL Solution For Nebulization 0.63 mg INHALATION Q4H PRN (Reason: Shortness Of Breath) Qty: 10 aspirin 325 mg Tablet 325 mg PO DAILY Qty: 30 RF: 2 atorvastatin 40 mg Tablet 40 mg PO DAILY gabapentin 800 mg Tablet 800 mg PO TID Qty: 60 hydrocodone-acetaminophen 5-325 mg Tablet 1 tab PO Q6H PRN (Reason: pain) Qty: 18 insulin detemir U-100 100 unit/mL (3 mL) Insulin Pen 5 unit SUB-Q QPM lisinopril 20 mg Tablet 20 mg PO DAILY sitagliptin 25 mg Tablet 25 mg PO DAILY Qty: 30 RF: 1 (DME) walker Misc Qty: 1 (DME) wheelchair Device Qty: 1 Discontinued metformin 1,000 mg Tablet 1,000 mg PO BID tramadol 50 mg Tablet 50 mg PO Q6H PRN (Reason: PAIN) Ambulatory Orders / Order Sets / DME: Wheelchair (1 each) (Routine) Location: Determined by Patient Ordered By: Nicolette Mcclendon Referrals: Ja Urena [Other] - See Instructions (followup in 2 weeks call for appointment 30 day event monitor with his office) Jalen Lara MD [Physician] - 05/11/18 John Lazar MD, R2 [FAMILY MEDICINE] - 05/08/18 Donovan Gonzalez MD [Physician] - 05/11/18 - Discharge Instructions Patient Printed Instructions: Clopidogrel (By mouth), Chest Pain (DC), Type 2 Diabetes in Adults (DC), Chronic Back Pain (GEN), Stroke (DC) - Post Discharge Care Plan Care Plan Goals: Discharge Care Plan Goals for Stroke You have been diagnosed with or have a high risk for a stroke, or a TIA ( transient ischemic attack). During a stroke, blood stops flowing to part of your brain. This can damage areas in the brain that control other parts of the body. Symptoms after a stroke depend on which part of the brain has been affected. Directions to Meet your Goals: 1. Diet: Based on your situation, your doctor will direct you to make changes in your diet. Some of the changes may include: * Reducing the amount of fat and cholesterol you eat * Don't add salt to your food. * Eat more fresh vegetables and fruits * Eat more lean proteins, such as fish, poultry, and beans and peas (legumes). Cut down on red meat & processed meats * Use low-fat dairy products * Limit vegetable oils and nut oils. Avoid any food that has hydrogenated listed in its ingredients. * Limit sweets and processed foods such as chips, cookies, and baked goods 2. Prevent Falls/Injury: You may be at risk of falling. Activity: * Keep your surrounding clutter free to help you walk more easily. * Your doctor and therapist may decide if you need an assistive device to walk safely. Shower/Bathing: * Test the water temperature with a hand or foot that was not affected by the stroke. * Use grab bars, a shower seat, a hand-held showerhead, and a long-handled brush. Getting Dressed: * Dress while sitting, starting with the affected side or limb. * Wear shirts that pull easily over your head. Wear pants or skirts with elastic waistbands. * Use zippers with loops attached to the pull tabs. 3. Lifestyle Modifications: * Take your medicines exactly as prescribed. Dont skip doses. * Begin an exercise program as directed by your doctor. You can benefit from simple activities such as walking or gardening. * Limit how much alcohol you drink. Men should have no more than 2 alcoholic drinks a day. Women should limit themselves to 1 alcoholic drink per day. * Know your cholesterol level. Follow your doctor's recommendations about how to keep cholesterol under control. * If you are a smoker, quit now. Joining a stop-smoking program will improve your chances of success. Ask your doctor for medicines or other methods to help you quit. * Learn stress management techniques to help you deal with stress in your home and work life. 4. Stroke Risk Factors: Once youve had a stroke, youre at greater risk for another one. Listed below are some other factors that can increase your risk for a stroke: * High blood pressure and High Cholesterol * Cigarette or cigar smoking * Diabetes * Carotid or other artery disease * Atrial fibrillation, atrial flutter, or other heart disease * Not being physically active * Obesity * Certain blood disorders such as sickle cell anemia * Drinking too much alcohol * Abusing street drugs * Race * Gender * Family history of stroke * Diet high in salty, fried, or greasy foods 5. Follow-up: * Keep your medical appointments. Close follow-up is important to stroke rehabilitation and recovery. * Some medicines require blood tests to check for progress or problems. Keep follow-up appointments for any blood tests ordered by your providers. Call 911 right away if you have: Weakness, tingling, or loss of feeling on one side of your face or body Sudden double vision or trouble seeing in one or both eyes Sudden trouble talking or slurred speech Trouble understanding others Sudden, severe headache Dizziness, loss of balance, or a sense of falling Blackouts or seizures F.A.S.T. is an easy way to remember the signs of stroke. When you see these signs, you know that you need to call 911 fast. F.A.S.T. stands for: * F is for face drooping. One side of the face is drooping or numb. When the person smiles, the smile is uneven. * A is for arm weakness. One arm is weak or numb. When the person lifts both arms at the same time, one arm may drift downward. * S is for speech difficulty. You may notice slurred speech or trouble speaking. The person can't repeat a simple sentence correctly when asked. * T is for time to call 911. If someone shows any of these symptoms, even if they go away, call 911 right away. Make note of the time the symptoms first appeared.
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
[2018-05-04] MEDS: Insulin NovoLOG Aspart Correctional Sugar Inj SQ SCH (09:32)
== END 2018-05-04 09:42 | disposition home health service (06) ==
LOC: EDACCT# → NEDA 16:22 → N04 20:24
PROVIDERS: ADMIT Family Medicine; ATTEND Family Medicine